=== PATIENT | female | born 1955 | race Two or more races ===

== ENCOUNTER 2016-07-04 17:42 | Inpatient (IN) | payer MEDICARE ==
--- NOTE | ~2016-07-04 | CR72 ---
[facility] A Service of [facility] RADIOLOGY TEXT RESULTS PATIENT: JUSTYN ELLISON LOCATION: [facility] : 53 UNIT #: [id number] AGE: [address]: Chaz Bean MD SEX: F ORDER DR: [id number] [facility] [address] [facility]. [place], [place] [address] [id number] MR#: [id number] Acc #: [id number] NAME: JUSTYN ELLISON. : 1955 SEX: F STUDY DATE/TIME: 07/04/2016 16:15 UNIT: CED ROOM: 21576 STUDY DESCRIPTION: CR Chest Single View Portable Attending Physician: Chaz Bean M.D. Ordering Physician: Ed Doctor [id number] [facility] Primary Care Physician: Kenyatta Madsen MEDICAL IMAGING REPORT This report is preliminary unless electronic signature is present EXAM Chest x-ray single view portable HISTORY Incoherent, chest pain, short of air starting today. FINDINGS A single frontal portable view of the chest, time 17:09 on 07/04/2016 is reviewed. Comparison study is from 05/18/2016. Moderate globular cardiac silhouette enlargement increased from previous. There is a right-sided pacer/defibrillator. Right hilum is enlarged but unchanged. There might be some patchy air space disease at the left base, new from previous or at least better seen. Hilar prominence is not changed significantly from the study of 2010. There is enlargement of the main pulmonary artery segmental on the current study and this is concerning for underlying pulmonary hypertension when findings are taken together. IMPRESSION Cardiac silhouette enlargement globular moderate. Additionally there is enlargement of the main pulmonary artery segment contour and carlos manuel and this raises concern for pulmonary hypertension. There may be a small amount of air space disease at the left base. There is no congestive failure, pleural effusion or pneumothorax seen. There is a right sided pacer/defibrillator. [facility] A Service [facility] RADIOLOGY TEXT RESULTS PATIENT: JUSTYN ELLISON LOCATION: [facility] : 54 UNIT #: [id number] AGE: [address]: Chaz Bean MD SEX: F ORDER DR: Dictated by... Nidia Abebe M.D. THIS IS AN ELECTRONICALLY VERIFIED REPORT Nidia Abebe M.D. at 07/09/2016 1:49 PM Lien TD: 07/05/2016 12:39 JOB #: [id number] MEDICAL IMAGING REPORT Page 1 of 1 COPY
--- NOTE | ~2016-07-04 | HP ---
Unit #: [id number] #: [id number] Patient: JUSTYN ELLISON [id number] [facility]. [place], [place] [address] [id number] I MR#: [id number] NAME: JUSTYN ELLISON. ROOM: 06933 Age: 60 Sex: F Admission Date: 07/04/2016 : 1955 Attending Physician: Antoine Mcallister M.D. Primary Care Physician: Kenyatta Madsen HISTORY AND PHYSICAL REVISED REPORT HISTORY OF PRESENT ILLNESS This is a pleasant 60-year-old female who does speak Bahamian. She has a past medical history of endstage renal disease, on hemodialysis Tuesdays, and Saturdays; history of renal cell carcinoma status post left nephrectomy; paroxysmal atrial fibrillation, on chronic anticoagulation with Coumadin; diabetes mellitus; hypertension; hyperlipidemia; hyperparathyroidism; permanent pacemaker placement. The patient presented to the emergency room yesterday after completing dialysis. Apparently during dialysis she started complaining of some lower anterior sternal chest pain described as sharp. No radiation of pain. She says she did have some shortness of breath and diaphoresis; however, the pain came and went. However, the patient did develop hypotension during dialysis and was, therefore, sent to the emergency room for further evaluation. On arrival to the emergency room the patient was found to be in atrial fibrillation with RVR, rate of 107 beats per minute. EKG showed nonspecific T wave abnormality. No acute ischemic change. QTc interval 531 msec. Guply-yb-lvmi troponins have been less than 0.05 x2. It was noted the patient's creatinine is 5. Potassium this morning is 5.5. Will ask renal to see the patient. She also was found to have an elevated PT, INR of 66.9 and 6.0. There is no overt bleeding. Will hold all Coumadin for now. The patient has had evaluation for coronary artery disease in the past. Had a cardiac catheterization in 2013, which showed normal coronaries and a normal LV function. She also had repeat Lexiscan in 2015, which showed no stress-induced ischemia, LVEF of 71%. At present the patient is resting in bed. She still does complain of slight discomfort in the lower anterior chest, upper epigastric area, but is in no acute distress. At this time she appears to be in sinus rhythm, and heart rate blood pressures are stable. PAST MEDICAL HISTORY 1. Insulin-dependent diabetes mellitus. 2. Hypertension. 3. Hyperlipidemia. 4. Paroxysmal atrial fibrillation, on chronic anticoagulation with Unit #: [id number] #: [id number] Patient: JUSTYN ELLISON A Coumadin. 5. Endstage renal disease, on hemodialysis Wednesday, , Wednesday. 6. History of renal cell carcinoma status post left nephrectomy. 7. Hyperparathyroidism. 8. Status post permanent pacemaker placement. SURGICAL HISTORY 1. Left nephrectomy for renal cell carcinoma. 2. Permanent pacemaker placement. SOCIAL HISTORY She lives alone. Her daughter is close by. She denies any illicit drugs, alcohol or tobacco use. FAMILY HISTORY Heart disease in her mother. PHYSICAL EXAM GENERAL: This is a pleasant middle-aged female in no acute distress. VITAL SIGNS: Temperature 97.8, respiratory rate 18-20, pulse 73, blood pressure 105/79. HEENT: Head is atraumatic, normocephalic. Mucous membranes are dry. NECK: Trachea is midline. Supple. No thyromegaly. No JVD. Normal upstroke without bruits. CARDIAC: S1, S2. No murmur, gallop or rub. PULMONARY: Anterior chest wall is clear to auscultation. She has fine bibasilar rales. ABDOMEN: Obese, soft, nontender, nondistended. Bowel sounds are present. EXTREMITIES: Pulses are palpable. Trace edema. No clubbing or cyanosis. NEUROLOGIC: She is awake, alert and oriented. She moves all extremities equally and follows commands with ease. DIAGNOSTIC STUDIES LABORATORY: Sodium 136, potassium 5.5, chloride 97, CO2 27, BUN 25, creatinine 5, glucose 182. PT 66.9, INR 6. Troponins have been less than 0.05 x2 point of care. Hemoglobin 11, hematocrit 35.2, WBC 6.3, platelet count 247. IMAGING: Chest x-ray shows cardiac enlargement. No evidence of congestive heart failure. No pneumothorax. Right-sided pacemaker is present. CARDIOVASCULAR: EKG shows atrial fibrillation with RVR, rate of 107 beats per minute, nonspecific T wave abnormality, prolonged QTc of 531 msec, no acute ischemic change. IMPRESSION 1. Atrial fibrillation with RVR with a history of paroxysmal atrial fibrillation. 2. Endstage renal disease, on hemodialysis Wednesday, , Wednesday. 3. Atypical chest pain. 4. Hyperkalemia. 5. Status post permanent pacemaker placement. 6. LVEF 60 to 65 in 2013. 7. History of hypertension. 8. Hyperlipidemia. 9. Diabetes mellitus. 10. History of hyperparathyroidism. Unit #: [id number] #: [id number] Patient: JUSTYN ELLISON 11. History of renal cell carcinoma status post left nephrectomy. PLAN The patient has been admitted with complaints of atypical chest pain. In the ER she was found to be in atrial fibrillation with RVR. It appears the patient's initial EKG showed some nonspecific T wave abnormality but no acute ischemic change. Her initial troponins have been negative, point of care. The patient did have cardiac cath in 2013, which showed normal coronary arteries, and a Lexiscan in 2015, which showed no stress-induced ischemia. Will trend cardiac enzymes q.6 hours x2 more sets. Please call if troponin is elevated. Will ask Dr. Hidalgo with renal to see the patient, as she is a hemodialysis patient. Will ask HIPS to see for medical management. Her Coumadin will continue to be held at this time secondary to elevated INR. Will check blood cultures q.30 minutes x2 sets to rule out any evidence of infection. Repeat BMP, CBC, PT and INR daily and a magnesium level. Okay at this time for the patient to eat. It appears at this time she has returned to normal sinus rhythm. Will continue her other medicines as ordered. She will be continued on her Metoprolol, amiodarone and aspirin therapy. Anticoagulation can be resumed once INR is at a normal level. Dictated by Liane Franco A.P.R.N. for Antoine Mcallister M.D. LMW/db TD: 07/05/2016 10:18 JOB #: [id number] CC: Mario Alberto/[email or web address] Please Delete HISTORY AND PHYSICAL Page 1 of 1 X Liane Franco APRN HISTORY AND PHYSICAL
--- NOTE | ~2016-07-04 | CO ---
Unit #: [id number] #: [id number] Patient: JUSTYN ELLISON [id number] [address] [place], [place] [address] [id number] I MR#: [id number] NAME: JUSTYN ELLISON. ROOM: 55026 Age: 60 Sex: F Admission Date: 07/04/2016 : 1955 Attending Physician: Chaz Bean M.D. Primary Care Physician: Kenyatta Madsen Consultation Date: 07/05/2016 CONSULTATION REPORT REASON FOR CONSULT End-stage renal disease. Thank you very much for asking me to see this patient in consultation. HISTORY OF PRESENT ILLNESS Again, Ms. Justyn Ellison is a 60-year-old female with history of end-stage renal disease on hemodialysis every Wednesday, , and Wednesday who has a history of left nephrectomy secondary to renal cell CA in February 2013. Had a large bleed and hematoma post that and has intermittently now been on Coumadin again for intermittent atrial fibrillation who was at dialysis yesterday and apparently developed shortness of breath and chest pain. Her dialysis was discontinued and presented here although needle was still in place. She states her epigastric/chest pain is feeling better but not fully resolved. I am not sure at this point in time how much dialysis she got. She was noted to have a potassium of 4.4 upon presentation. It is up to 5.5 this morning. She denies any shortness of breath currently. No nausea or vomiting. PAST MEDICAL HISTORY 1. History of end-stage renal disease, as mentioned above. 2. History of atrial fibrillation in the past. 3. Sick sinus syndrome. 4. History of bradycardia, status post temporary pacer in the past. 5. History of renal cell CA, status post left nephrectomy. 6. History of DVTs. 7. History of diabetes. 8. History of hyperlipidemia. SOCIAL HISTORY Does not smoke. No alcohol. FAMILY HISTORY Noncontributory. REVIEW OF SYSTEMS As mentioned in the HPI. Apparently, no fevers, chills, visual problems, cough, hemoptysis. No neck pain. She does have the chest pain, shortness of breath mentioned above. No severe abdominal pain. No significant lower extremity swelling. No recent seizures or strokes. ALLERGIES No known drug allergies. Unit #: [id number] #: [id number] Patient: JUSTYN ELLISON MEDICATIONS Her medications supposedly at home included: 1. Amiodarone 200 mg daily. 2. Phenergan p.r.n. 3. Hydralazine 50 mg t.i.d. 4. Insulin. 5. Sensipar 30 mg daily. 6. Aspirin 81 mg daily. 7. Hydrocodone p.r.n. for pain. 8. Protonix 40 mg daily. 9. Apparently, she had been on Coumadin daily although I do not know what her previous INR has been at the dialysis unit. 10. Renvela with each meal, two of them. PHYSICAL EXAMINATION GENERAL: She is alert and comfortable. VITAL SIGNS: Her T-max is 97.3, pulse is 72-124. Her blood pressure is 86-121 over 50s to 80s. HEENT: She is normocephalic and atraumatic. Her pupils are equal, round, and reactive to light. Extraocular muscles are intact. Hearing appears to be normal. Mouth is clear. No erythema. No exudate. NECK: Supple. No adenopathy. CARDIAC: She is back in a regular rhythm, although it was atrial fibrillation when she came in. No S3 or S4 were appreciated. LUNGS: Her lungs are clear bilaterally. ABDOMEN: Bowel sounds positive. Nontender, soft. No masses felt. No hepato-organomegaly noted. EXTREMITIES: She has no lower extremity swelling. Fistula in the left arm. Dialysis nurse currently is putting pressure on it after the needle was removed 30 minutes ago. GENITOURINARY: Deferred. DIAGNOSTIC STUDIES LABORATORY: Today her BUN is 25, creatinine 5, glucose 182, potassium 5.5, bicarbonate 27, calcium 8.2. Albumin 3.5, alkaline phosphatase 143. Her troponin is pending. Her INR is 4.8 last night and up to 6 today. Her hemoglobin is 11, white count 6300, platelets 247,000. ASSESSMENT AND PLAN 1. End-stage renal disease: Patient with some dialysis yesterday, unsure how much. Potassium is worsening today. Will plan on dialyzing her again today on a 2 potassium bath three hours, although I will not remove any fluid. She does not appear to be volume overloaded on exam and will check her electrolytes in the morning and will continue to follow. Agree with continuing phosphate binders. 2. History of intermittent atrial fibrillation back on Coumadin apparently in the past, although increased INR again per cardiology/primary. 3. Diabetes mellitus. 4. History of hypertension. 5. History of renal cell cancer, status post left nephrectomy. 6. Anemia: Hemoglobin stable. Will give Epogen with dialysis and will follow trends. Dictated by... Unit #: [id number] #: [id number] Patient: JUSTYN ELLISON M.D. WAD/mary lou TD: 07/06/2016 09:57 JOB #: [id number] CONSULTATION REPORT Page 1 of 1 X Adwoa Hidalgo MD X CONSULTATION REPORT
--- NOTE | ~2016-07-04 | CO ---
Unit #: [id number] #: [id number] Patient: JUSTYN ELLISON [id number] [facility]. [place], [place] [address] [id number] I MR#: [id number] NAME: JUSTYN ELLISON. ROOM: 95893 Age: 60 Sex: F Admission Date: 07/04/2016 : 1955 Attending Physician: Chaz Bean M.D. Primary Care Physician: Kenyatta Madsen Consultation Date: 07/05/2016 CONSULTATION REPORT REASON FOR CONSULTATION Medical management. HISTORY OF PRESENT ILLNESS The patient is a 60-year-old female with a past medical history of atrial fibrillation, chronic anticoagulation, end stage renal disease, diabetes, hypertension, hyperlipidemia, hyperparathyroidism, renal malignancy who was admitted by cardiology for atrial fibrillation with rapid ventricular response. The patient apparently developed chest pain and low blood pressure during dialysis. She states that the pain was in the mid chest. She described it as "sharp." It did not radiate. She did have some associated shortness of breath and diaphoresis. She states that the pain is now gone. However, the shortness of breath has remained. She also reports nonproductive cough. She denies any fever. She was noted to have low blood pressure at dialysis. Per my discussion with ER staff, was given fluids at dialysis and an additional 500 mL of normal saline in the emergency department. Blood pressure most recently is 114/70. In the emergency department, laboratory was notable for hemoglobin of 11, initially blood sugar 226, BUN and creatinine 18 and 4 respectively. Troponin was less than 0.05. INR was 4.8. She, as stated above, was admitted by cardiology. HIPS was consulted for medical management. This morning potassium was noted to be 5.5, glucose 182, BUN and creatinine 25 and 5 respectively. INR is 6. Also per my discussion with cardiothoracic surgery who was also seeing the patient, the patient had an echocardiogram this morning that showed a large pericardial effusion. She is actually being transferred to [facility]. PAST MEDICAL HISTORY 1. Admission to [facility] 07/11/2011 through 07/16/2011 for paroxysmal atrial fibrillation with sick sinus syndrome and bradycardia. She underwent temporary pacemaker placement during that admission. 2. End stage renal disease on dialysis, followed by Dr. Hidalgo. She receives dialysis on Wednesday, , and Wednesday with last dialysis being yesterday. 3. Diabetes. 4. Hypertension. 5. Hyperlipidemia. 6. Hyperparathyroidism. Unit #: [id number] #: [id number] Patient: JUSTYN ELLISON 7. Renal malignancy, status post left nephrectomy. 8. Chronic anticoagulation with Coumadin. 9. Echocardiogram 11/26/2013, showed an ejection fraction of 60% to 65% with moderate asymmetric left ventricular hypertrophy, patent foramen ovale, right ventricular systolic pressure of 40 to 50 mmHg. Of note, the patient had an echocardiogram this morning that shows a large pericardial effusion. The official report is pending. PAST SURGICAL HISTORY 1. Temporary transvenous pacemaker placement (05/14/2016). 2. EGD and colonoscopy. 3. Cardiac catheterization 11/26/2013 showed no hemodynamically significant fixed coronary artery stenosis with normal left ventricular systolic function. 4. Appendectomy. 5. Cholecystectomy. 6. Hysterectomy. 7. Right breast biopsy. 8. Shunt left upper extremity. 9. Left nephrectomy. 10. Fistula placement. SOCIAL HISTORY The patient lives with family. There is no tobacco or alcohol use. FAMILY HISTORY Notable for her mother having diabetes. Her dad had malignancy. ALLERGIES No known allergies. HOME MEDICATIONS Amiodarone 200 mg twice daily; aspirin 81 mg daily; Protonix 40 mg daily; Sensipar 30 mg daily; Humalog 2 units t.i.d.; hydrocodone and acetaminophen q.4 hours p.r.n.; Levemir 20 units at bedtime; Renvela 1600 mg t.i.d. The patient is also on Coumadin, which I do not see listed. REVIEW OF SYSTEMS A complete review of systems is negative except as indicated in the HPI. PHYSICAL EXAMINATION VITAL SIGNS: Temperature 97.3, pulse 73, respirations 18, blood pressure 105/79. GENERAL: The patient is awake and alert in no acute distress. HEENT: Head is atraumatic. Mucous membranes are moist. NECK: Supple. Trachea is midline. CARDIOVASCULAR: Irregular. LUNGS: Demonstrate bibasilar crackles. Breathing is mildly labored with conservation. ABDOMEN: Soft, nontender with bowel sounds present in all four quadrants. EXTREMITIES: Showed trace edema but are nontender. NEUROLOGIC: The patient is awake and alert. She follows commands. PSYCH: Mood and affect are normal. Patient is cooperative. SKIN: Skin of examined areas is warm and dry. DIAGNOSTIC STUDIES CARDIOLOGY STUDIES: EKG shows atrial fibrillation with rapid ventricular response at a rate of 107 BPM. Unit #: [id number] #: [id number] Patient: JUSTYN ELLISON IMAGING STUDIES: Chest x-ray showed cardiac enlargement with no evidence of congestive heart failure. LABORATORY STUDIES: Troponin was less than 0.05. Complete blood count notable for hemoglobin and hematocrit of 11 and 35.2 respectively. INR was 4.8 yesterday, it is 6 today. Basic metabolic panel this morning notable for potassium of 5.5, glucose 182, BUN and creatinine 25 and 5 respectively. Calcium is 8.3. ASSESSMENT The patient is a 60-year-old female with: 1. Atrial fibrillation with rapid ventricular response, currently rate controlled with a pulse of 71. 2. Chest pain. The patient's cardiac enzymes have been negative. 3. Pericardial effusion. The patient recently had a temporary pacemaker placed. She reportedly has early signs of tamponade on echocardiogram. The plan is for her to be transferred to [facility] for pericardial window. 4. Hyperkalemia. The patient's potassium is 5.5. 5. End stage renal disease on dialysis Wednesday, , and Wednesday. 6. Diabetes. 7. Hypertension. 8. Hyperlipidemia. 9. Hyperparathyroidism. 10. History of renal malignancy, status post nephrectomy. 11. Chronic anticoagulation with an INR of 6 this morning. PLAN 1. Regarding diabetes, I have ordered a hemoglobin A1c, as well as low dose sliding scale insulin with Accu-Cheks. 2. Regarding hyperkalemia, I have ordered Kayexalate. 3. Regarding end stage renal disease on dialysis, Dr. Hidalgo has been consulted. 4. Regarding chronic anticoagulation, the patient is currently supratherapeutic and I have ordered for Coumadin to be held. 5. Regarding pericardial effusion, the patient is being transferred to [facility]. Thank you very much for the consultation. We will follow the patient along closely with you while the patient is here at [facility]. Dictated by... Kenyatta Alfred M.D. Greg TD: 07/05/2016 13:41 JOB #: [id number] Unit #: [id number] #: [id number] Patient: TERRAJUSTYN Boswell CONSULTATION REPORT Page 1 of 1 X Kenyatta Alfred MD CONSULTATION REPORT
--- NOTE | ~2016-07-04 | DS ---
Unit #: [id number] #: [id number] Patient: JUSTYN ELLISON [id number] [address] [address] [id number] MR#: [id number] NAME: JUSTYN ELLISON. ROOM: [id number] Age: 60 Sex: F Admission Date: 07/04/2016 : 1955 Discharge Date: Attending Physician: Chaz Bean M.D. Primary Care Physician: Kenyatta Madsen DISCHARGE SUMMARY DISCHARGE DIAGNOSES 1. Large pericardial effusion with pre-tamponade. 2. Atrial fibrillation with rapid ventricular rate, now sinus rhythm. 3. Supratherapeutic International Normalized Ratio of 6. 4. Endstage renal disease, on hemodialysis Tuesdays, and Saturdays. 5. Atypical chest pain. 6. History of renal cell carcinoma status post left nephrectomy. 7. History of paroxysmal atrial fibrillation, on chronic anticoagulation with Coumadin, which is currently on hold. 8. Insulin-dependent diabetes mellitus. 9. Hypertension history. 10. Hyperlipidemia. 11. History of hyperparathyroidism. 12. Recent permanent pacemaker placement secondary to sick sinus syndrome, [employer] device, which was placed on May 18, 2016. DISCHARGE MEDICATIONS 1. Amiodarone 200 mg p.o. b.i.d. 2. Lopressor 25 mg p.o. t.i.d. 3. Procrit 10,000 units injection prior to dialysis. 4. Levemir 20 units subcu q.h.s. 5. NovoLog 2 units subcu t.i.d. with meals. 6. Sliding scale low dose insulin protocol a.c. and h.s. 7. Sensipar 30 mg p.o. daily. 8. Renvela 1,600 mg p.o. t.i.d. with meals. 9. Protonix 40 mg p.o. daily. HOSPITAL COURSE This is a pleasant 60-year-old female who does speak Kiswahili. She presented to the emergency room on 07/04 with complaints of lower anterior chest discomfort, shortness of breath and hypotension. Apparently she had had dialysis and, toward the end of her treatment, became hypotensive and was transferred to the ER for evaluation. Upon arrival to the emergency room the patient was found to be in atrial fibrillation with RVR, as well as to have supratherapeutic INR of 6. She was also noted to have potassium of 5.5, a creatinine of 5. Renal has been consulted to see the patient. During evaluation the patient did undergo two-D echocardiogram today on 07/05, and I was called with the results, which showed a large pericardial effusion with evidence of pre-tamponade. However, the patient is currently Unit #: [id number] #: [id number] Patient: JUSTYN ELLISON stable. Blood pressure is okay, and she has converted to normal sinus rhythm. Dr. Mcallister was notified. We consulted Dr. Greene, and Dr. Perdue has been in to see and evaluate the patient. It has been decided the patient is best served to be transferred to [facility] for possible pericardial window in the a.m. She will be admitted to Dr. Mcallister with Dr. Greene to consult for probable window in the a.m. Dr. Perdue has seen the patient here at [facility], has ordered CT without contrast, as well as vitamin K and 2 units of FFP to reverse her coagulopathy. Repeat studies will be performed prior to procedure. At present, the patient is stable. It has been explained to her the need for transfer. The access center has been notified, and we are currently awaiting bed placement. All anticoagulation has been stopped at this time. Her Coumadin and her aspirin are both on hold. Her Cardizem drip has been discontinued, as she has converted to normal sinus rhythm. The patient will be transferred to [facility] as soon as a bed becomes available. CONSULTANTS 1. Dr. Hidalgo, renal. 2. Dr. Alfred, HIPS. 3. Dr. Perdue. DIAGNOSTIC STUDIES LABORATORY: Glucose 182, BUN 25, creatinine 5, sodium 136, potassium 5.5, chloride 97, CO2 27. Troponin less than 0.05 x2; currently has one pending. TSH is 5.35. PT 66.9, INR 6. Hemoglobin 11, hematocrit 35.2, WBC 6.3, platelet count 247. IMAGING: Chest x-ray shows cardiac enlargement, no evidence of congestive heart failure, pneumothorax. Right-sided pacemaker is present. CARDIOVASCULAR: EKG initially showed atrial fibrillation with a rate of 107 beats per minute with RVR, nonspecific T wave abnormality, prolonged QTc of 531 msec, no acute ischemic change. PHYSICAL EXAMINATION VITAL SIGNS: Temperature 97.8, respiratory rate 18-20, pulse 70s and sinus, blood pressure 105/79. HEENT: Head is atraumatic, normocephalic. Mucous membranes are dry. NECK: Trachea is midline. Supple. No thyromegaly. No JVD. Normal carotid upstrokes without bruits. CARDIOVASCULAR: S1, S2. No murmur, gallop or rub. PULMONARY: Anterior chest wall is clear. Fine rales bibasilar. ABDOMEN: Obese, soft, nontender, nondistended. Bowel sounds are present. EXTREMITIES: Pulses are palpable. Trace edema. No clubbing or cyanosis. NEUROLOGIC: She is awake, alert and oriented. Moves all extremities equally. Follows commands with ease. DISCHARGE INSTRUCTIONS The patient initially was admitted secondary to atypical chest pain, shortness of breath and hypotension at dialysis. In the emergency room she was found to be in atrial fibrillation with RVR and was started on a Cardizem drip. She has since converted to normal sinus rhythm. Cardiac enzymes were noted to be negative. During her workup with two-D echocardiogram, (1) called me to notify of a large pericardial effusion with evidence of possible pre-tamponade. The patient is stable. Unit #: [id number] #: [id number] Patient: JUSTYN ELLISON Her blood pressure is stable. Her heart rate is stable. We have asked Dr. Perdue, who is in with Dr. Greene, to see and evaluate the patient. It has been determined that it is best for her to be transferred to [facility] for possible pericardial window in the a.m. per Dr. Greene or Dr. Perdue. This has been explained to the patient, and she is willing and agreeable to proceed. I have notified the access center and currently am awaiting intermediate level bed placement. All anticoagulation has been discontinued at this time. Her Cardizem drip has also been discontinued, as the patient is in normal sinus rhythm. Dr. Perdue has seen and evaluated the patient and has ordered some vitamin K to be given, as well as 2 units FFP. She will also undergo CTA of the chest without contrast to rule out any perforation from her recent pacemaker placement in May of 2016. [facility], Dr. Mcallister's service, and Dr. Greene to consult, again for possible pericardial window in the a.m. Dictated by... Liane Franco A.P.R.N. for John Hodge/sherman TD: 07/05/2016 13:15 JOB #: [id number] DISCHARGE SUMMARY Page 1 of 1 X Liane Franco APRN X DISCHARGE SUMMARY
--- NOTE | ~2016-07-04 | CT57 ---
[facility] A Service [facility] RADIOLOGY TEXT RESULTS PATIENT: JUSTYN ELLISON LOCATION: [facility] [id number] : 54 UNIT #: [id number] AGE: [address]: Chaz Bean MD SEX: F ORDER DR: [id number] [facility] [address] [place], [place] [address] [id number] MR#: [id number] #: [id number] NAME: JUSTYN ELLISON. : 1955 SEX: F STUDY DATE/TIME: 07/05/2016 15:32 UNIT: CED ROOM: [id number] STUDY DESCRIPTION: CT Chest Wo Cont Attending Physician: Chaz Bean M.D. Ordering Physician: Ana Hidalgo M.D. Primary Care Physician: Kenyatta Madsen MEDICAL IMAGING REPORT This report is preliminary unless electronic signature is present EXAM CT chest without contrast HISTORY Chest pain and shortness of air for 2 days. Hypertension. TECHNIQUE This CT exam was performed with one or more of the following radiation dose reduction techniques: automatic exposure control, adjustment of mA and/or kV according to patient size, and iterative reconstruction. FINDINGS CT chest without contrast demonstrates large pericardial effusion measuring up to nearly 4 cm in thickness along the left posterior cardiac margin. There are small bilateral pleural effusions. There is mild atelectasis in the posterior and inferior lower lobes bilaterally. There is also mild atelectasis in the inferior lingula. Subsegmental atelectasis or scarring in the medial upper lobes bilaterally. No focal pulmonary consolidation. Normal caliber thoracic aorta. Partly calcified mitral annulus. IMPRESSION 1. Large pericardial effusion measures close to 4 cm in thickness along the left posterior cardiac margin. 2. There are small bilateral pleural effusions and there is [id number] atelectasis in the posterior and inferior lower lobes. 3. There is also mild atelectasis or scarring in the medial upper lobes bilaterally and mild linear atelectasis or scarring in the right middle lobe and lingula. [facility] A [facility] RADIOLOGY TEXT RESULTS PATIENT: JUSTYN ELLISON LOCATION: [facility] [id number] : 54 UNIT #: [id number] AGE: [address]: Chaz Bean MD SEX: F ORDER DR: Dictated by... Bhargav Jean M.D. THIS IS AN ELECTRONICALLY VERIFIED REPORT Bhargav Jean M.D. at 07/05/2016 10:54 PM KHARI/ana TD: 07/05/2016 20:59 JOB #: [id number] MEDICAL IMAGING REPORT Page 1 of 1 COPY
--- NOTE | ~2016-07-04 | EKG ---
PATIENT: JUSTYN ELLISON UNIT #: [id number] Ventricular Rate: 107 BPM Atrial Rate: 71 BPM QRS Duration: 84 ms Q-T Interval: 398 ms QTC Calculation(Bezet): 531 ms Calculated R [place]: 65 degrees Calculated T [place]: 105 degrees Diagnosis Line: Atrial fibrillation with rapid ventricular Diagnosis Line: response Diagnosis Line: Nonspecific T wave abnormality Diagnosis Line: Prolonged QT Diagnosis Line: Abnormal ECG Diagnosis Line: When compared with ECG of 15-MAY-2016 11:24, Diagnosis Line: Atrial fibrillation has replaced Sinus rhythm Diagnosis Line: Nonspecific T wave abnormality now evident in Diagnosis Line: Lateral leads Diagnosis Line: Confirmed by NICKI BARON MD ([id number]) on 07/07/2016 Diagnosis Line: 10:52:20 PM INTERPRETING MD: TOD MIKE
--- NOTE | ~2016-07-04 | EKG ---
PATIENT: JUSTYN ELLISON UNIT #: [id number] Ventricular Rate: 69 BPM Atrial Rate: 69 BPM P-R Interval: 164 ms QRS Duration: 86 ms Q-T Interval: 484 ms QTC Calculation(Bezet): 518 ms P [place]: 52 degrees Calculated R [place]: 71 degrees Calculated T [place]: 27 degrees Diagnosis Line: Normal sinus rhythm Diagnosis Line: Prolonged QT Diagnosis Line: Abnormal ECG Diagnosis Line: Diagnosis Line: Confirmed by NICKI BARON MD ([id number]) on 07/07/2016 Diagnosis Line: 10:57:09 PM INTERPRETING MD: TOD MIKE
[~2016-07-04 17:42] MED LIST: ACETAMINOPHEN PO; ALBUTEROL17 GM INH; AMIODARONE PO; ANUSOL-HC25 MG/SUPP RC; APRESOLINE PO; ASPIRIN PO; ASPIRIN1 GM PO; ASPIRIN300 MG PO; ASPIRIN81 M1 PO; ASPIRIN81 M2 PO; ASPIRIN81 MG PO; AUGMENTIN PO; Aspirin PO; BAYER ASPIRIN325 M1 PO; BD INSULIN MC; BENTYL10 M1 PO; BENZONATATE PO; BETAPACE80 MG PO; CALCIUM ACETAT667 M1 PO; CALCIUM1 TAB.CHEW PO; CAPTOPRIL PO; CARDIZEM; CARDIZEM CD180 M1 PO; CARDIZEM PO; CARDIZEM60 MG PO; CELEXA PO; CHOLESTEROL; CORDARONE200 M1 PO; COREG PO; COUMADIN2.5 MG PO; COUMADIN5 MG PO; COUMADIN7.5 MG PO; Calcium PO; Cardizem PO; DESYREL100 MG PO; DEXILANT30 MG PO; ECOTRIN81 M1 PO; FLAGYL PO; FLEXERIL10 M1 PO; FLEXERIL10 MG PO; FOLIC ACID PO; FUROSEMIDE40 MG PO; HCTZ PO; HUMALOG MI100 UNIT/4 SUBQ; HUMALOG100 U/M1; HUMALOG100 U/M1 SQ; HUMALOG100 U/M2 SUBQ; HUMALOG100 U/ML SUBQ; HUMIRA20 MG/0.4 SQ; HYDRALAZINE HC100 MG PO; HYDRALAZINE HCL25 MG; HYDRALAZINE HCL25 MG PO; HYDRALAZINE HCL50 MG PO; HYDROCHLOROTHIA25 MG PO; HYDROCODON-ACE1 EAC7 PO; K-DUR10 MEQ PO; LANTUS100 U/ML; LANTUS100 U/ML SUBQ; LANTUS100 UNITS/; LASIX PO; LASIX20 MG PO; LASIX80 MG PO; LEVAQUIN PO; LEVAQUIN750 MG PO; LEVEMIR; LEVEMIR FL100 UNIT/1 SQ; LEVEMIR SUBQ; LEVEMIR100 U/ML SQ; LEVEMIR100 U/ML SUBQ; LEVEMIR100 UNITS/; LEVEMIR100 UNITS/ SUBQ; LEVOXYL125 MC1 PO; LINZESS145 MCG PO; LIPITOR40 MG PO; LISINOPRIL PO; LISINOPRIL1 GM; LISINOPRIL1 GM PO; LISINOPRIL2.5 MG PO; LISINOPRIL20 MG PO; LOPRESSOR PO; LOVENOX80 MG/0.8 SUBQ; METFORMIN PO; METOPROLOL PO; METOPROLOL SUC100 MG PO; METOPROLOL SUCC25 MG PO; METOPROLOL TAR100 MG PO; METOPROLOL TAR25 MG PO; MEVACOR PO; MIRALAX17 GM PO; MIRALAX255 GM PO; MOTION RELIEF25 MG PO; NAPROSYN500 MG PO; NASCOBAL1 EACH NS; NORVASC PO; NORVASC10 MG PO; NORVASC2.5 MG PO; NOVOLOG100 UNITS/ INJ; OCEAN45 ML; PERCOCET PO; PHENERGAN12.5 MG PO; PHOSLO667 M1 PO; PHOSLO667 MG; PRILOSEC PO; PRINIVIL40 MG PO; PROTONIX PO; RENAGEL800 MG PO; RENVELA2.4 GM PO; RENVELA800 MG PO; SENSIPAR30 M1 PO; SIMVASTATIN20 MG PO; SODIUM BICARBO650 MG PO; SOTALOL120 MG PO; SYNTHROID PO; SYNTHROID125 PO; Sotalol PO; TOPROL XL 50 MG50 MG PO; TOPROL XL PO; TUMS500 MG PO; TYLENOL #3 PO; TYLENOL325 M1 PO; ULTRAM PO; VICODIN 5/500 T1 TAB; VITAMIN D350000 UNIT PO; VITAMIN D5000 UNIT PO; ZESTRIL40 MG PO; ZOCOR PO; ZOCOR20 MG PO; [UNRECOGNIZED DRUG - OTHER] MC
[2016-07-04 17:49] LABS: POC - CKMB <1.0 ng/mL (0.0-7.9); POC - TROPONIN <0.05 ng/mL (<=0.05)
[2016-07-04 18:04] LABS: BASOPHIL# 0.1 X10e3 (0-0.3); BASOPHIL% 0.8 % (0-2.5); EOSINOPHIL% 0.8 % (0.0-7.0); HEMATOCRIT 35.2 % (35.0-45.0); LYMPHOCYTE# 1.1 X10e3 (1.0-3.5); MEAN CELL VOLUME 99.5 FL (83-96); MEAN CORPUSCULAR HEMOGLOBIN 31.1 PG (28-34); MEAN CORPUSCULAR HGB CONC 31.3 g/dL (30-36); MEAN PLATELET VOLUME 8.7 FL (6.5-11.5); MONOCYTE# 0.4 X10e3 (0-1.0); MONOCYTE% 6.6 % (3.0-12.0); NEUTROPHIL# 4.7 X10e3 (1.5-7.1); NEUTROPHIL% 74.8 % (40-75); PLATELET COUNT 247 X10e3 (140-420); RED BLOOD COUNT 3.54 X10e (3.90-5.30); RED CELL DISTRIBUTION WIDTH 17.4 % (11.0-15.5); WHITE BLOOD COUNT 6.3 X10e3 (4.0-10.5)
[2016-07-04 18:05] LABS: DIFF IND NO
[2016-07-04 18:24] LABS: PARTIAL THROMBOPLASTIN TIME 44.3 SECONDS (23.5-31.3)
[2016-07-04 18:26] LABS: PROTHROMBIN TIME (PATIENT) 53.3 SECONDS (9.6-11.5)
[2016-07-04 18:32] LABS: INR 4.8
[2016-07-04 18:36] LABS: ALBUMIN SERUM 3.5 g/dL (3.5-5.0); BILIRUBIN, DIRECT 0.1 mg/dL (0.0-0.2); BILIRUBIN,INDIRECT 0.5 mg/dL (0.0-0.9); BILIRUBIN,TOTAL 0.6 mg/dL (0.2-2.0); BUN/CREATININE RATIO 4.5; GLOM FILT RATE Estimated 11.4 mL/min (>60); POTASSIUM 4.4 mmol/L (3.5-5.1); PROTEIN TOTAL SERUM 7.2 g/dL (6.0-8.3)
[2016-07-04] MEDS ORDERED: RENVELA800 MG PO (19:28)
[2016-07-04 19:29] LABS: POC - CKMB <1.0 ng/mL (0.0-7.9); POC - TROPONIN <0.05 ng/mL (<=0.05)
[2016-07-05 05:24] LABS: PROTHROMBIN TIME (PATIENT) 66.9 SECONDS (9.6-11.5)
[2016-07-05 05:53] LABS: CALCIUM SERUM 8.3 mg/dL (8.4-10.2); GLOM FILT RATE Estimated 8.7 mL/min (>60)
[2016-07-05 06:06] LABS: POTASSIUM 5.5 mmol/L (3.5-5.1)
[2016-07-05] MEDS ORDERED: COUMADIN (08:30)
== END 2016-07-05 18:59 | DRG 314 ==
LOC: CED 17:42 → SEDOF 19:15 → CEDOF 22:06
PROVIDERS: Emergency Medicine; Nurse Practitioner
PROC: B246YZZ Ultrasonography of Right and Left Heart using Other Contrast (ICD-10-PCS; principal; 2016-07-05)
DX: I31.3 Pericardial effusion (noninflammatory) (principal); N18.6 End stage renal disease; I12.0 Hypertensive chronic kidney disease with stage 5 chronic kidney disease or end stage renal disease; E11.22 Type 2 diabetes mellitus with diabetic chronic kidney disease; I48.91 Unspecified atrial fibrillation; Z99.2 Dependence on renal dialysis; Z79.4 Long term (current) use of insulin; E78.5 Hyperlipidemia, unspecified; E21.3 Hyperparathyroidism, unspecified; Z85.528 Personal history of other malignant neoplasm of kidney; Z90.5 Acquired absence of kidney; Z79.84 Long term (current) use of oral hypoglycemic drugs; Z79.82 Long term (current) use of aspirin; Z90.49 Acquired absence of other specified parts of digestive tract; Z90.710 Acquired absence of both cervix and uterus; E87.5 Hyperkalemia; Z86.718 Personal history of other venous thrombosis and embolism; R07.9 Chest pain, unspecified
CPT/HCPCS: 71010; 71250; 80048; 80076; 82550; 82553; 82947; 84443; 84484; 85025; 85610; 85730; 86850; 86900; 86901; 87040; 93005; 93306; 96374; 96375; 99291; J1885; J3430; P9059; Q4081

== ENCOUNTER 2016-07-14 08:49 | Inpatient (IN) | payer MEDICARE ==
--- NOTE | ~2016-07-14 | CT4 ---
[facility] A Service [facility] RADIOLOGY TEXT RESULTS PATIENT: JUSTYN ELLISON LOCATION: [facility] 579-01 : 53 UNIT #: [id number] AGE: [address]: Irene Muse MD SEX: F ORDER DR: [id number] [facility] [address] [place], [place] [address] [id number] E MR#: [id number] Acc #: [id number] NAME: JUSTYN LELISON. : 1955 SEX: F STUDY DATE/TIME: 07/14/2016 9:41 UNIT: LINDA ROOM: STUDY DESCRIPTION: CT Abd and Pelv Wo Cont Attending Physician: Jim Jennings M.D. Ordering Physician: Jim Jennings M.D. Primary Care Physician: Kenyatta Madsen MEDICAL IMAGING REPORT This report is preliminary unless electronic signature is present EXAM CT abdomen and pelvis without contrast Date: 07/14/2016 HISTORY 60-year-old female with complaints of abdominal pain for 1 day, greatest in the left upper abdomen, with nausea and vomiting. Previous appendectomy, cholecystectomy, hysterectomy. COMPARISON CT abdomen and pelvis without contrast 07/11/2015. PROCEDURE 3 mm noncontrast axial images through the abdomen and pelvis. Enteric contrast was not administered. Sagittal and coronal reformed images were obtained. This CT exam was performed with one or more of the following radiation dose reduction techniques: automatic exposure control, adjustment of mA and/or kV according to patient size, and iterative reconstruction. FINDINGS Abdomen: There is abnormal thickening and inflammatory type stranding surrounding the mid sigmoid colon where diverticular changes are present. Findings are consistent with acute diverticulitis. The findings are new in comparison to the 07/11/2015 examination. No free air, free fluid or abscess is identified. The gallbladder and appendix are surgically absent, according to the supplied history. Since previous examination, small bilateral pleural effusions have [facility] A [facility] RADIOLOGY TEXT RESULTS PATIENT: JUSTYN ELLISON LOCATION: [facility] 579-01 : 53 UNIT #: [id number] AGE: [address]: Irene Muse MD SEX: F ORDER DR: developed, the right layering to a depth of 3 cm, the left layering to a depth of 2.2 cm. Dense left greater than right bibasilar consolidations or atelectasis are new, as well. There is some atelectasis or infiltrate within the lingula. Minimal atelectasis in the right middle lobe. There is mild cardiac enlargement. Pacemaker leads are in place. Small concentric pericardial effusion has developed, measuring up to 7 mm thickness anteriorly. The liver, spleen, adrenals have a normal noncontrast appearance. Left nephrectomy. [place] right renal atrophy. Pancreas within normal limits. Pelvis: Urinary bladder decompressed. Hysterectomy. Rectum within normal limits. No acute osseous abnormalities are identified. IMPRESSION 1. Findings consistent with acute sigmoid diverticulitis, new since the 07/11/2015 examination. No gross perforation or evidence of abscess. 2. Interval development of bibasilar consolidations, left greater than right. Correlate clinically for pneumonia or aspiration. Atelectatic type changes are thought to be present in the lingular right middle lobe, as well. 3. Development of small bilateral pleural effusions, right greater left, since 07/11/2015. 4. Mild cardiomegaly with coronary artery calcifications. Correlate cardiac history. 5. Interval development of small concentric pericardial effusion up to 7 mm. Correlate for pericarditis type symptoms. 6. Left nephrectomy. Right renal atrophy. Cholecystectomy. Hysterectomy. Dictated by... Mary Cardoza M.D. THIS IS AN ELECTRONICALLY VERIFIED REPORT Mary Cardoza M.D. at 07/15/2016 8:34 AM MELINA/tom TD: 07/14/2016 12:38 JOB #: [id number] MEDICAL IMAGING REPORT Page 1 of 1 COPY
--- NOTE | ~2016-07-14 | HP ---
Unit #: [id number] #: [id number] Patient: JUSTYN ELLISON [id number] [facility]. [place], [place] [address] [id number] E MR#: [id number] NAME: JUSTYN ELLISON ROOM: Age: 60 Sex: F Admission Date: 07/14/2016 : 1955 Attending Physician: Jim Jennings M.D. Primary Care Physician: Kenyatta Madsen HISTORY AND PHYSICAL REVISED REPORT CHIEF COMPLAINT Abdominal pain. HISTORY OF PRESENT ILLNESS The patient is a 60-year-old female with past medical history of end-stage renal disease on dialysis, paroxysmal atrial fibrillation, diabetes, hypertension, hyperlipidemia, hyperparathyroidism, renal malignancy, who presented to the emergency department for evaluation of the above. History is obtained via receptionist clerk #[id number] due to the patient being Maltese speaking. The patient was hospitalized at [facility], July 04, 2016, for atrial fibrillation with rapid ventricular response. She was noted to have a large pericardial effusion and was transferred to [facility]. She apparently had a drain for a few days and repeat echocardiogram showed no effusion. She was discharged home on July 11, 2016. The patient states that she has had a two to three day history of left-sided abdominal pain. She describes the pain as "sharp." She states is fairly constant in nature but varies in intensity. It is exacerbated by moving. There are no alleviating factors. She denies any fever. She states that she has had five bouts of nonbloody emesis within the past 24 hours. Her last bowel movement was several days ago. She told the emergency department physician four days. For me, she said about six days. In the emergency department, CT of the abdomen and pelvis was done and showed findings concerning for acute sigmoid diverticulitis. Additionally, there is bibasilar consolidation with small bilateral pleural effusions as well as a pericardial effusion. She was given Rocephin as well as Flagyl in the emergency department. She is being admitted to [facility] for evaluation and further treatment. PAST MEDICAL HISTORY 1. Admission to [facility], July 04, 2016, for atrial fibrillation with rapid ventricular response. She was found to have large pericardial effusion with early tamponade and was transferred to [facility] where she underwent pericardiocentesis with pericardial drain. 2. Paroxysmal atrial fibrillation with sick sinus syndrome and bradycardia status post temporary pacemaker placement. 3. End-stage renal disease on dialysis followed by Dr. Hidalgo. The Unit #: [id number] #: [id number] Patient: JUSTYN ELLISON patient receives dialysis on Wednesday, , Wednesday with the last dialysis being on July 11, 2016. 4. Diabetes. 5. Hypertension. 6. Hyperlipidemia. 7. Hyperparathyroidism. 8. Renal malignancy status post left nephrectomy. 9. Hypothyroidism. PAST SURGICAL HISTORY 1. Temporary transvenous pacemaker placement, May 14, 2016. 2. EGD and colonoscopy. 3. Cardiac catheterization, November 26, 2013. It showed no hemodynamically significant fixed coronary artery stenosis with a normal left ventricular systolic function. 4. Appendectomy. 5. Cholecystectomy. 6. Hysterectomy. 7. Right breast biopsy. 8. Shunt left upper extremity. 9. Left nephrectomy. 10. Fistula placement. SOCIAL HISTORY The patient lives with family. There is no tobacco or alcohol use. FAMILY HISTORY Notable for her mother having diabetes. Her dad had malignancy. ALLERGIES No known allergies. HOME MEDICATIONS Per the discharge summary from [facility] include: 1. Amiodarone 200 mg daily. 2. Aspirin 81 mg daily. 3. Calcium 667 mg t.i.d. with meals. 4. Humalog 2 units t.i.d. before meals. 5. Levemir 20 units at bedtime. 6. Metoprolol 25 mg t.i.d. 7. [place] 5/325 mg q.4 hours p.r.n. 8. Protonix 40 mg daily. 9. Renvela 800 mg t.i.d. 10. Sensipar 30 mg daily. 11. Synthroid 50 mcg daily. REVIEW OF SYSTEMS A complete review of systems is negative except as indicated in the HPI. The patient denies any chest pain. No shortness of breath. No cough or fever. PHYSICAL EXAMINATION GENERAL APPEARANCE: The patient is a female who is awake and alert, in mild distress. VITAL SIGNS: Temperature 98. Pulse 76. Respiration 20. Blood pressure 146/67. Oxygen saturation 100% on room air. HEENT: The head is atraumatic. Mucous membranes are dry. NECK: Supple. Trachea is midline. Unit #: [id number] #: [id number] Patient: JUSTYN ELLISON CARDIOVASCULAR: Irregular. LUNGS: Decreased breath sounds at the bases. Breathing is not labored with conversation. ABDOMEN: Soft. She is tender to palpation in the left upper and lower quadrants. Bowel sounds are present in all four quadrants. EXTREMITIES: Nontender with no pedal edema. NEUROLOGIC: The patient is awake and alert. She follows commands. PSYCHIATRIC: Mood and affect are normal. The patient is cooperative. SKIN: Of examined areas is warm and dry. DIAGNOSTIC STUDIES LABAORATORY: Comprehensive metabolic panel notable for sodium of 134, chloride 94, glucose 121, BUN and creatinine 41 and 8 respectively, ALT 43, alkaline phosphatase 143, albumin 3.3. Amylase and lipase are normal. INR 1.3. Complete blood count notable for hemoglobin and hematocrit of 11.8 and 37.4 respectively. Blood culture, from November 04, 2016, showed no growth after five days. IMAGING: Chest x-ray shows persistent dense left lower lobe airspace disease, mild right basilar atelectasis or infiltrate, small bilateral pleural effusion, stable cardiomegaly. CT of the abdomen and pelvis shows acute sigmoid diverticulitis, bibasilar consolidation, small bilateral pleural effusions as well as pericardial effusion. ASSESSMENT The patient is a 60-year-old female with: 1. Acute diverticulitis. The patient received Flagyl and Rocephin in the emergency department. 2. Healthcare-associated pneumonia. 3. Bilateral pleural effusions. 4. Pericardial effusion. Per the discharge summary from [facility], on July 11, 2016, the patient had a repeat echocardiogram that showed no effusion at that time. 5. End-stage renal disease on dialysis with last dialysis being on July 11. She is followed by Dr. Hidalgo. 6. Paroxysmal atrial fibrillation intermittently on chronic anticoagulation. The patient does not appear to currently be on anticoagulation. 7. Diabetes. 8. Hypertension. 9. Hyperlipidemia. 10. Hyperparathyroidism. 11. Renal malignancy status post nephrectomy. 12. Hypothyroidism. PLAN 1. Admit to intermediate level. 2. NPO and we will advance diet to clear liquids as tolerated. 3. Blood cultures x2. 4. Stool studies including ova and parasites, C. diff., culture and sensitivity. 5. Supplemental oxygen. 6. Sputum culture and sensitivity. 7. Procalcitonin level. 8. Streptococcal and legionella urine antigens. 9. Vancomycin IV, Levaquin IV, Zosyn IV for acute diverticulitis as well as to cover for healthcare-associated pneumonia pending further workup. Unit #: [id number] #: [id number] Patient: JUSTYN ELLISON 10. PRN DuoNeb. 11. Consult Dr. Patricio regarding healthcare-associated pneumonia and bilateral pleural effusions. 12. Consult Dr. Bean regarding pericardial effusion. 13. Consult Dr. Hidalgo regarding end-stage renal disease and dialysis needs. 14. Hemoglobin A1C. 15. Low dose sliding scale insulin with Accu-Cheks. 16. EKG and cardiac enzymes. 17. Check urinalysis. 18. TSH. 19. Repeat labs in the morning. 20. SCDs for DVT prophylaxis. 21. Additional workup and consultants based on above. 1. Dictated by John Araujo/susy TD: 07/14/2016 12:45 JOB #: [id number] HISTORY AND PHYSICAL Page 1 of 1 X Kenyatta Alfred MD X HISTORY AND PHYSICAL
--- NOTE | ~2016-07-14 | DS ---
Unit #: [id number] #: [id number] Patient: JUSTYN ELLISON [id number] [address] [address] [id number] I MR#: [id number] NAME: JUSTYN ELLISON. ROOM: 579 Age: 60 Sex: F Admission Date: 07/14/2016 : 1955 Discharge Date: Attending Physician: Irene Muse M.D. Primary Care Physician: Kenyatta Madsen DISCHARGE SUMMARY DISCHARGE DIAGNOSES 1. Acute diverticulitis. 2. Healthcare-associated pneumonia, possible gram-negative rods. 3. Bilateral pleural effusion, exudative, status post thoracentesis. 4. Pericardial effusion, recurrent. 5. Renal disease on hemodialysis. 6. Paroxysmal atrial fibrillation, currently Coumadin on hold secondary to recent pericardiocentesis. 7. Diabetes, controlled. 8. Hypertension, controlled. 9. Hyperlipidemia. 10. Hyperparathyroidism. 11. Renal malignancy status post nephrectomy. 12. Hypothyroidism. CONSULTATION Dr. Patricio and Dr. Blanca. PROCEDURES None. LAB DATA Glucose 184. Pleural effusion tap shows a few atypical cells in the background of mesothelial cells, scattered mixed inflammatory cells and blood cells present. Sodium 135, potassium 4.4, creatinine 3.8, AST 15, ALT 19, albumin 2.8. CAT scan of the abdomen and pelvis shows findings consistent with acute sigmoid diverticulitis, bibasilar consolidation present. WBC 4.6, hemoglobin 11.2, platelets 286. Urine culture negative. Blood cultures negative. ALLERGIES None. DISCHARGE MEDICATION 1. Amiodarone 200 mg p.o. daily. 2. Lopressor 25 mg p.o. three times daily. 3. Levemir 10 units subcu at bedtime. 4. Sensipar 30 mg p.o. daily. 5. Aspirin 81 mg daily. 6. Lortab 5 mg q.4 p.r.n. pain. 7. Renvela 800 mg three times daily. 8. Calcium acetate 667 mg p.o. three times daily with meals. Unit #: [id number] #: [id number] Patient: JUSTYN ELLISON 9. Synthroid 50 mcg p.o. daily. 10. Coumadin is on hold. Do not restart until seen by family physician. She is supposed to be off for four weeks total starting 07/05/2016 because of recent pericardiocentesis. 11. Levaquin 500 mg p.o. daily, total eight more days. 12. Flagyl 500 mg three times daily for seven more days. HOSPITALIZATION COURSE A 60-year-old admitted because of shortness of breath and abdominal pain. Acute diverticulitis: Started on IV Levaquin and Zosyn. CAT scan shows acute sigmoid diverticulitis. The patient will be discharged on Levaquin and Flagyl. She is tolerating diet okay. Pericardial effusion: The patient was recently in [facility]. At that time, she had pericardiocentesis and now, currently, she has pericardial effusion recurrent on echocardiogram, mild to moderate. Cardiology saw this patient. They recommend only hemodialysis. No intervention needed at that time. Hold Coumadin for a total of four weeks from pericardiocentesis. Pleural effusion, bilateral: The patient had thoracentesis. Fluid showing exudative. The patient was seen by Dr. Arceo. Continue antibiotics and monitor and follow as an outpatient. End-stage renal disease: The patient received hemodialysis. Obstructive sleep apnea, possible: Follow outpatient. Mild protein malnutrition: Continue with high protein diet. Diabetes mellitus type 2 with lower blood sugars. Levemir has been decreased. Discharge home. Follow with family physician in one week's time. Discharge time taken is 32 minutes. Dictated by... John Ni/susy TD: 07/17/2016 13:56 JOB #: [id number] DISCHARGE SUMMARY Page 1 of 1 X Irene Muse MD X DISCHARGE SUMMARY
--- NOTE | ~2016-07-14 | CO ---
Unit #: [id number] #: [id number] Patient: JUSTYN ELLISON [id number] [address] [address] [id number] I MR#: [id number] NAME: JUSTYN ELLISON. ROOM: 579 Age: 60 Sex: F Admission Date: 07/14/2016 : 1955 Attending Physician: Kenyatta Alfred M.D. Consultation Date: 07/14/2016 CONSULTATION REPORT REASON FOR CONSULTATION Pneumonia. CHIEF COMPLAINT Abdominal pain. HISTORY OF PRESENT ILLNESS A 60-year-old female with a past medical history of end-stage renal disease, paroxysmal atrial fibrillation, diabetes, hypertension, dyslipidemia, and obstructive sleep apnea, presented with the complaint of abdominal pain for the last two to three days, sharp in character, 5 out of 10, radiating all over. She also has been complaining of mild cough. Denies any fever, chills, or rigors. A CT of the abdomen and pelvis showed bilateral pleural effusions and bilateral infiltrates. I am seeing the patient at the bedside. She is currently on room air. REVIEW OF SYSTEMS Positive for pallor. Positive for abdominal pain. No cyanosis, no jaundice. The rest is per History of Present Illness. The rest of a 12-point review of systems has been reviewed and is negative. PAST MEDICAL HISTORY As described above. PAST SURGICAL HISTORY 1. Temporary transvenous pacemaker placement. 2. EGD and colonoscopy. 3. Cardiac catheterization. 4. Appendectomy. 5. Cholecystectomy. 6. Hysterectomy. 7. Right breast biopsy. 8. Shunt in the left upper extremity. 9. Left nephrectomy. 10. Fistula placement. SOCIAL HISTORY He lives with family. Nonsmoker, no alcohol, and no drug abuse. FAMILY HISTORY Diabetes and malignancy. MEDICATIONS 1. Amiodarone. Unit #: [id number] #: [id number] Patient: JUSTYN ELLISON 2. Aspirin. 3. Calcium. 4. Humalog. 5. Levemir. 6. Metoprolol. 7. [place]. 8. Protonix. 9. Renvela. 10. Sensipar. 11. Synthroid. DRUG ALLERGIES No known drug allergies. PHYSICAL EXAMINATION VITAL SIGNS: Temperature 98, pulse 76, respirations 16, blood pressure 146/67, and oxygen saturation 100% on room air. NEUROLOGICAL: Awake, alert, and oriented, with no neurological deficits. HEENT: Pupils equal, round, and reactive to light and accommodation. Extraocular movements are intact. NECK: Supple. No JVD. CHEST: Bilateral air entry, bilateral mild rhonchi. GASTROINTESTINAL: Nontender and soft. Bowel sounds positive. EXTREMITIES: No edema. SKIN: No rashes and no ulcers. LYMPHATICS: No lymphadenopathy. DIAGNOSTIC STUDIES LABORATORY: Reviewed. IMAGING: Reviewed. CT chest, abdomen, and pelvis showed acute sigmoid diverticulitis, bibasilar consolidation, and bilateral pleural effusions. ASSESSMENT 1. Bilateral lower lobe pneumonia, likely healthcare associated. 2. Acute diverticulitis. 3. Pericardial effusion. 4. Diabetes mellitus. 5. Hypertension. 6. Obstructive sleep apnea. PLAN Continue oxygen and bronchodilator as needed. Continue current antibiotic. Follow up cultures. Patient will be closely monitored. May need bronchoscopy. We will follow along. Continue current cardiac regime. Please see orders for detailed plans. I would like to thank you for your kind consideration to involve me in taking care of this patient. Dictated by... John Sandoval/talha TD: 07/14/2016 21:05 JOB #: [id number] Unit #: [id number] #: [id number] Patient: JUSTYN ELLISON CONSULTATION REPORT Page 1 of 1 X Clara Patricio MD CONSULTATION REPORT
--- NOTE | ~2016-07-14 | XA203 ---
[facility] A Service of [facility] RADIOLOGY TEXT RESULTS PATIENT: JUSTYN ELLISON LOCATION: [place] [address] : [birth year] UNIT #: [id number] AGE: [address]: Irene Muse MD SEX: F ORDER DR: [id number] [facility] [address] [facility] [place], [place] [address] [id number] I MR#: [id number] Acc #: [id number] NAME: JUSTYN ELLISON : 1955 SEX: F STUDY DATE/TIME: 07/15/2016 14:40 UNIT: [facility] ROOM: [facility] STUDY DESCRIPTION: XA Thoracentesis Attending Physician: Irene Muse M.D. Ordering Physician: Mary Arceo M.D. Primary Care Physician: Kenyatta Madsen MEDICAL IMAGING REPORT This report is preliminary unless electronic signature is present EXAM Ultrasound guided left thoracentesis 07/15/2016 HISTORY Left pleural effusion. PROCEDURE Informed consent was obtained. The skin site was selected with ultrasound guidance and marked, sterilely prepped and draped and locally anesthetized. The GenVault needle catheter was used for thoracentesis. 200 mL of fluid was removed and a specimen sent for testing as requested. There were no complications. IMPRESSION Successful ultrasound guided left thoracentesis with removal of 200 mL of slightly blood tinged fluid. Dictated by... Gabriel Wilson M.D. THIS IS AN ELECTRONICALLY VERIFIED REPORT Gabriel Wilson M.D. at 07/19/2016 11:22 AM Brenda TD: 07/15/2016 18:48 JOB #: [id number] MEDICAL IMAGING REPORT Page 1 of 1 COPY
--- NOTE | ~2016-07-14 | CR72 ---
[facility] A Service of [facility] RADIOLOGY TEXT RESULTS PATIENT: JUSTYN ELLISON LOCATION: [place] [address] : [birth year] UNIT #: [id number] AGE: [address]: Irene Muse MD SEX: F ORDER DR: [id number] [facility] [address] [facility] [place], [place] [address] [id number] MR#: [id number] Acc #: [id number] NAME: JUSTYN ELLISON. : 1955 SEX: F STUDY DATE/TIME: 07/14/2016 8:55 UNIT: [facility] ROOM: STUDY DESCRIPTION: CR Chest Single View Portable Attending Physician: Jim Jennings M.D. Ordering Physician: Jim Jennings M.D. Primary Care Physician: Kenyatta Madsen MEDICAL IMAGING REPORT This report is preliminary unless electronic signature is present EXAM AP portable chest Date: 07/04/2016 08:55 HISTORY 60-year-old female with complaints of chest pain, abdominal pain, congestion, nausea, which began 3 days ago. History of left kidney cancer. COMPARISON AP portable chest 07/06/2016 05:46. FINDINGS Low volume inspiration. Studies attenuated by body habitus. Dense left lower lobe airspace disease is present, obscuring the diaphragmatic margin. Lesser degree of airspace disease is present in the right lower lobe not thought to be significant change. Probable small bilateral pleural effusions, stable. Stable cardiomegaly. Right chest wall pacemaker leads appear unchanged. No visible pneumothorax. IMPRESSION 1. Persistent dense left lower lobe airspace disease. Correlate clinically for pneumonia. Mild right basilar atelectasis or infiltrate without appreciable change. 2. Stable probable small bilateral pleural effusions. 3. Stable cardiomegaly. Dictated by... Mary Cardoza M.D. THIS IS AN ELECTRONICALLY VERIFIED REPORT Mary Cardoza M.D. at 07/15/2016 8:34 AM LL/tom [facility] A Service of [facility] RADIOLOGY TEXT RESULTS PATIENT: JUSTYN ELLISON LOCATION: [facility] 579-01 : [birth year] UNIT #: [id number] AGE: [address]: Irene Muse MD SEX: F ORDER DR: TD: 07/14/2016 11:53 JOB #: [id number] MEDICAL IMAGING REPORT Page 1 of 1 COPY
--- NOTE | ~2016-07-14 | EKG ---
PATIENT: JUSTYN ELLISON UNIT #: [id number] Ventricular Rate: 75 BPM Atrial Rate: 75 BPM P-R Interval: 160 ms QRS Duration: 92 ms Q-T Interval: 434 ms QTC Calculation(Bezet): 484 ms P [place]: 34 degrees Calculated R [place]: 2 degrees Calculated T [place]: 142 degrees Diagnosis Line: Sinus rhythm with Premature atrial complexes Diagnosis Line: Possible Left atrial enlargement Diagnosis Line: T wave abnormality, consider lateral ischemia Diagnosis Line: Prolonged QT Diagnosis Line: Abnormal ECG Diagnosis Line: When compared with ECG of 05-JUL-2016 09:42, Diagnosis Line: Premature atrial complexes are now Present Diagnosis Line: Questionable change in QRS axis Diagnosis Line: T wave inversion now evident in Anterolateral Diagnosis Line: leads Diagnosis Line: Confirmed by NICKI BARON MD ([id number]) on 07/16/2016 Diagnosis Line: 7:49:16 PM INTERPRETING MD: TOD MIKE
--- NOTE | ~2016-07-14 | CR71 ---
[facility] A Service of [facility] RADIOLOGY TEXT RESULTS PATIENT: JUSTNY ELLISON LOCATION: [facility] 579-01 : 53 UNIT #: [id number] AGE: [address]: Irene Muse MD SEX: F ORDER DR: [id number] [facility] [address] [facility] [place], [place] [address] [id number] I MR#: [id number] Acc #: [id number] NAME: JUSTYN ELLISON. : 1955 SEX: F STUDY DATE/TIME: 07/15/2016 15:01 UNIT: [facility] ROOM: [facility] STUDY DESCRIPTION: CR Chest Single View Attending Physician: Irene Muse M.D. Ordering Physician: Gabriel Wilson M.D. Primary Care Physician: Kenyatta Madsen MEDICAL IMAGING REPORT This report is preliminary unless electronic signature is present EXAM Frontal chest 07/15/2016 INDICATIONS 60-year-old female status post thoracentesis today. History of renal malignancy. TECHNIQUE Frontal chest compared with 07/14/2016 FINDINGS Cardiac silhouette is enlarged but stable. Lung volumes are low and there has been interval increase in bronchovascular crowding or central vascular congestion and interstitial edema. Blunting of the right CP angle unchanged. Interval probable decrease in pleural fluid in the left lung. No distinct postprocedure pneumothorax. Exam is degraded by body habitus. IMPRESSION 1. Lower lung volumes with persistent cardiomegaly and probable increase in vascular congestion and mild interstitial edema. 2. Interval decrease in volume of pleural fluid on the left suspected although the left lung base is under penetrated. 3. Persistent blunting of the right CP angle is unchanged. No distinct pneumothorax. Dictated by... Casper Vieyra M.D. THIS IS AN ELECTRONICALLY VERIFIED REPORT Casper Vieyra M.D. at 07/15/2016 5:06 PM DEBI/chacorta [facility] A Service of [facility] RADIOLOGY TEXT RESULTS PATIENT: JUSTYN ELLISON LOCATION: [facility] 579-01 : [birth year] UNIT #: [id number] AGE: [address]: Irene Muse MD SEX: F ORDER DR: TD: 07/15/2016 16:38 JOB #: [id number] MEDICAL IMAGING REPORT Page 1 of 1 COPY
--- NOTE | ~2016-07-14 | CO ---
Unit #: [id number] #: [id number] Patient: JUSTYN ELLISON [id number] [address] [place], [place] [address] [id number] I MR#: [id number] NAME: JUSTYN ELLISON ROOM: 579 Age: 60 Sex: F Admission Date: 07/14/2016 : 1955 Attending Physician: Irene Muse M.D. Primary Care Physician: Kenyatta Madsen Consultation Date: 07/14/2016 CONSULTATION REPORT REASON FOR CONSULTATION Dialysis needs. HISTORY OF PRESENT ILLNESS Ms. Ellison is a 60-year-old female, familiar to our service, who gets dialysis at [facility] on [facility] on Tuesdays, , and Saturdays. The patient had presented to the emergency room with some left upper quadrant abdominal pain and has been diagnosed with diverticulitis and started on antibiotics. The patient has been in and out of the hospital last month with the most recent discharge from [facility] on 07/11/2016 after she had a pericardiocentesis and drain placed for a pericardial effusion and tamponade. Again, we were asked to see for her dialysis needs as she missed her dialysis today. The patient states that she has had some nausea and vomiting, but denies any diarrhea. There has been no mention of any bloody stools. She denies any chest discomfort or shortness of breath per se. No fevers or chills. PAST MEDICAL HISTORY Significant for end-stage renal disease, renal cell cancer, atrial fibrillation, sick sinus syndrome requiring pacemaker, history of DVTs, diabetes, hyperlipidemia, recent pericardial effusion. PAST SURGICAL HISTORY She has had a left nephrectomy. She has had a pacemaker placed. MEDICATIONS Her home medications are Lortab p.r.n., amiodarone 200 mg a day, baby aspirin daily, calcium acetate t.i.d. with meals, Levemir insulin, Humalog insulin, Synthroid 50 mcg a day, metoprolol 25 mg t.i.d., Renvela t.i.d. with meals, and warfarin is on hold. ALLERGIES She has no known drug allergies. FAMILY HISTORY Noncontributory. SOCIAL HISTORY The patient has no history of tobacco, alcohol, or drug use. REVIEW OF SYSTEMS A complete 12-point review of systems was completed with the above findings. In addition, the patient has not complained of any headache or dizziness. No nosebleed. No sore throat or earache. No hemoptysis. No Unit #: [id number] #: [id number] Patient: JUSTYN ELLISON A bright red blood per rectum or melena. No dysuria or hematuria. No swelling. No rashes or itching. No flank pain. No chills. No night sweats or hot flashes. No intolerance to heat or cold. No bleeding issues. Unless otherwise indicated, the review of systems was negative. PHYSICAL EXAMINATION VITAL SIGNS: Temperature is 97.9, pulse 84, respiratory rate 18, and blood pressure 148/91. GENERAL: This is a pleasant 60-year-old female, who is alert, in no acute distress. HEENT: Head is normocephalic. She does have some bruising around her left eye and facial area, which she says is a chronic issue. Nose shows no nasal drainage or nosebleed. Oropharynx is moist. NECK: Shows no JVD. HEART: Regular rate with no murmur. I do not hear a rub. LUNGS: Have some faint wheezing with diminished breath sounds at the bases. Breathing is nonlabored. ABDOMEN: Soft, with tenderness to palpation more so on the left upper and left lower quadrants. No masses appreciated. EXTREMITIES: No lower extremity clubbing, cyanosis, or edema. SKIN: Dry with no rashes. MUSCULOSKELETAL: No CVA tenderness to palpation. VASCULAR: The patient has a left arm fistula in place with good bruit and thrill. LYMPHATIC: There is no neck or cervical lymphadenopathy. PSYCHIATRIC: Mood and affect appear normal. DIAGNOSTIC STUDIES LABORATORY RESULTS: Procalcitonin was 0.33. UA showed 1+ protein and some white blood cells with culture pending. Chemistry noteworthy for a sodium of 134, potassium was 2.8, chloride 94, bicarb 25, glucose 121, BUN of 41, creatinine of 8, albumin 3.3. INR 1.3. CBC showed a hemoglobin of 11.8. Blood cultures from admission here earlier this month were negative. IMAGING STUDIES: CT of the abdomen and pelvis showed evidence of her previous left nephrectomy with rampart right renal atrophy, sigmoid diverticulitis, basilar consolidations in the lungs with small effusions, small concentric pericardial effusion. Chest x-ray showed some left lower lobe airspace disease and small bilateral effusions. ASSESSMENT AND PLAN 1. End-stage renal disease. The patient is due for dialysis today and that has been ordered. We will hold any heparin due to her recent pericardial effusion. 2. Hyponatremia. This may be related to her recent nausea and vomiting. We will correct this with dialysis tonight. 3. Hyperphosphatemia. We will continue her binders and we will also need to restart her Sensipar, which has been ordered. 4. Diverticulitis, on antibiotics. 5. Pneumonia, on antibiotics. 6. Pericardial effusion with Cardiology seeing. 7. Diabetes, on insulin. 8. History of pacemaker. 9. History of left nephrectomy for cancer in the past. I would like to thank Dr. Alfred for this consult and the opportunity to participate in the evaluation and care of Ms. Ellison. Unit #: [id number] #: [id number] Patient: JUSTYN ELLISON Dictated by... Mic Blanca Jr., MGabriella. AMBAR/david TD: 07/15/2016 07:33 JOB #: [id number] CONSULTATION REPORT Page 1 of 1 X Mic Blanca MD X CONSULTATION REPORT
[~2016-07-14 08:49] MED LIST changes: +COUMADIN
[2016-07-14 10:12] LABS: BASOPHIL# 0.1 X10e3 (0-0.3); BASOPHIL% 0.8 % (0-2.5); EOSINOPHIL# 0.1 X10e3 (0-0.7); HEMATOCRIT 37.4 % (35.0-45.0); HEMOGLOBIN 11.8 gm/dL (12.0-16.0); LYMPHOCYTE# 0.6 X10e3 (1.0-3.5); LYMPHOCYTE% 9.1 % (17.0-45.0); MEAN CELL VOLUME 95.4 FL (83-96); MEAN CORPUSCULAR HEMOGLOBIN 30.1 PG (28-34); MEAN CORPUSCULAR HGB CONC 31.6 g/dL (30-36); MEAN PLATELET VOLUME 7.9 FL (6.5-11.5); MONOCYTE# 0.7 X10e3 (0-1.0); MONOCYTE% 10.5 % (3.0-12.0); NEUTROPHIL# 5.5 X10e3 (1.5-7.1); NEUTROPHIL% 78.6 % (40-75); PLATELET COUNT 275 X10e3 (140-420); RED BLOOD COUNT 3.92 X10e (3.90-5.30); RED CELL DISTRIBUTION WIDTH 17.5 % (11.0-15.5)
[2016-07-14 10:14] LABS: DIFF IND NO
[2016-07-14 10:30] LABS: INR 1.3
[2016-07-14 10:31] LABS: PROTHROMBIN TIME (PATIENT) 13.4 SECONDS (9.6-11.5)
[2016-07-14 10:45] LABS: ALBUMIN SERUM 3.3 g/dL (3.5-5.0); BILIRUBIN, DIRECT 0.3 mg/dL (0.0-0.2); BILIRUBIN,INDIRECT 0.5 mg/dL (0.0-0.9); BILIRUBIN,TOTAL 0.8 mg/dL (0.2-2.0); BUN/CREATININE RATIO 5.12; CALCIUM SERUM 8.8 mg/dL (8.4-10.2); GLOM FILT RATE Estimated 4.9 mL/min (>60); POTASSIUM 4.8 mmol/L (3.5-5.1)
[2016-07-14 14:09] LABS: URINE SOURCE CLEAN CATCH
[2016-07-14 14:23] LABS: CULTURE INDICATED? YES; URBCS1 AUWI 0-2 /[HPF] (0-2); URINE APPEARANCE CLEAR; URINE BACTERIA AUWI 1+ (NEGATIVE); URINE BILIRUBIN NEG (NEG); URINE BLOOD NEG (NEG); URINE COLOR YELLOW; URINE GLUCOSE 100 MG/DL (NEG); URINE KETONE TRACE (NEG); URINE LEUKOCYTE ESTERASE 1+ (NEG); URINE NITRATE NEG (NEG); URINE PROTEIN 1+ (NEG); URINE SPECIFIC GRAVITY 1.017 (1.003-1.035); URINE SQUAMOUS EPITHELIAL CELL MOD /[HPF]
[2016-07-14 14:30] LABS: U HYALINE CASTS AUWI 0-2 /[LPF]
[2016-07-14 14:42] LABS: CK TOTAL 34 IU/L (26-140)
[2016-07-14] MEDS ORDERED: HYDROCODON-ACE1 EAC7 PO (16:06)
[2016-07-14] MEDS ORDERED: ASPIRIN81 MG PO (16:08)
[2016-07-14] MEDS ORDERED: AMIODARONE HCL200 MG PO (16:08)
[2016-07-14] MEDS ORDERED: CALCIUM ACETAT667 MG PO (16:09)
[2016-07-14] MEDS ORDERED: LEVEMIR FL100 UNIT/1 SUBQ (16:09)
[2016-07-14] MEDS ORDERED: HUMALOG100 UNIT/1 SUBQ (16:10)
[2016-07-14] MEDS ORDERED: METOPROLOL TAR25 MG (16:11)
[2016-07-14] MEDS ORDERED: TIROSINT50 MCG PO (16:11)
[2016-07-14] MEDS ORDERED: RENVELA800 MG PO (16:12)
[2016-07-14] MEDS ORDERED: [UNRECOGNIZED DRUG - REMARK] (16:13)
[2016-07-14 19:25] LABS: CK TOTAL 34 IU/L (26-140)
[2016-07-15 05:24] LABS: HEMATOCRIT 34.9 % (35.0-45.0); HEMOGLOBIN 11.1 gm/dL (12.0-16.0); MEAN CELL VOLUME 94.9 FL (83-96); MEAN CORPUSCULAR HEMOGLOBIN 30.2 PG (28-34); MEAN CORPUSCULAR HGB CONC 31.9 g/dL (30-36); MEAN PLATELET VOLUME 7.8 FL (6.5-11.5); RED BLOOD COUNT 3.68 X10e (3.90-5.30); RED CELL DISTRIBUTION WIDTH 17.3 % (11.0-15.5); WHITE BLOOD COUNT 5.9 X10e3 (4.0-10.5)
[2016-07-15 05:55] LABS: INR 1.3; PROTHROMBIN TIME (PATIENT) 14.2 SECONDS (9.6-11.5)
[2016-07-15 06:39] LABS: ALBUMIN SERUM 2.8 g/dL (3.5-5.0); BILIRUBIN,TOTAL 0.7 mg/dL (0.2-2.0); BUN/CREATININE RATIO 3.95; CALCIUM SERUM 8.5 mg/dL (8.4-10.2); CREATININE SERUM 4.3 mg/dL (0.6-1.4); GLOM FILT RATE Estimated 10.4 mL/min (>60); MAGNESIUM 1.9 mg/dL (1.6-3.0); PHOSPHOROUS 3.5 mg/dL (2.5-4.6); POTASSIUM 4.1 mmol/L (3.5-5.1); PROTEIN TOTAL SERUM 5.8 g/dL (6.0-8.3)
[2016-07-15 09:49] LABS: LEGIONELLA AG URINE NEG (NEG)
[2016-07-15 10:47] LABS: CK TOTAL 40 IU/L (26-140)
[2016-07-15 15:51] LABS: PROTEIN, BODY FLUID 3.3 gm/dL
[2016-07-15 16:17] LABS: BF TOTAL NUCLEATED CELL COUNT 672 CMM (0-100); BODY FLUID APPEARANCE BLOODY; BODY FLUID RBC 36887 CMM; BODY FLUID SOURCE PLEURAL
[2016-07-17 07:55] LABS: HEMATOCRIT 34.8 % (35.0-45.0); HEMOGLOBIN 11.2 gm/dL (12.0-16.0); MEAN CELL VOLUME 94.8 FL (83-96); MEAN CORPUSCULAR HEMOGLOBIN 30.4 PG (28-34); MEAN CORPUSCULAR HGB CONC 32.1 g/dL (30-36); MEAN PLATELET VOLUME 7.7 FL (6.5-11.5); RED BLOOD COUNT 3.67 X10e (3.90-5.30); WHITE BLOOD COUNT 4.6 X10e3 (4.0-10.5)
[2016-07-17 08:33] LABS: ALBUMIN SERUM 2.8 g/dL (3.5-5.0); BILIRUBIN,TOTAL 0.6 mg/dL (0.2-2.0); BUN/CREATININE RATIO 3.15; CALCIUM SERUM 8.2 mg/dL (8.4-10.2); CREATININE SERUM 3.8 mg/dL (0.6-1.4); GLOM FILT RATE Estimated 12.1 mL/min (>60); POTASSIUM 4.4 mmol/L (3.5-5.1)
[2016-07-17] MEDS ORDERED: FLAGYL PO (15:03)
[2016-07-17] MEDS ORDERED: LEVAQUIN PO (15:03)
[2016-07-17] MEDS ORDERED: SENSIPAR30 MG PO (15:04)
== END 2016-07-17 15:55 | disposition home or self-care (01) | DRG 391 ==
LOC: CED 08:49 → CEDOF 12:30 → C5C 16:55
PROVIDERS: Emergency Medicine; Family Medicine; Internal Medicine
PROC: 5A1D60Z (ICD-10-PCS; 2016-07-14)
PROC: B246ZZZ Ultrasonography of Right and Left Heart (ICD-10-PCS; 2016-07-14)
PROC: 0W9B3ZX Drainage of Left Pleural Cavity, Percutaneous Approach, Diagnostic (ICD-10-PCS; principal; 2016-07-15)
DX: K57.32 Diverticulitis of large intestine without perforation or abscess without bleeding (principal); J15.6 Pneumonia due to other Gram-negative bacteria; J90 Pleural effusion, not elsewhere classified; I12.0 Hypertensive chronic kidney disease with stage 5 chronic kidney disease or end stage renal disease; N18.6 End stage renal disease; I31.3 Pericardial effusion (noninflammatory); E87.1 Hypo-osmolality and hyponatremia; E44.1 Mild protein-calorie malnutrition; I48.0 Paroxysmal atrial fibrillation; E11.9 Type 2 diabetes mellitus without complications; E78.5 Hyperlipidemia, unspecified; E21.3 Hyperparathyroidism, unspecified; E03.9 Hypothyroidism, unspecified; G47.33 Obstructive sleep apnea (adult) (pediatric); Z90.49 Acquired absence of other specified parts of digestive tract; Z90.710 Acquired absence of both cervix and uterus; Z83.3 Family history of diabetes mellitus; Z79.82 Long term (current) use of aspirin; Z79.4 Long term (current) use of insulin; Z86.711 Personal history of pulmonary embolism; Z85.53 Personal history of malignant neoplasm of renal pelvis; Z90.5 Acquired absence of kidney
CPT/HCPCS: 36415; 71010; 74176; 80048; 80053; 80076; 80202; 81003; 82042; 82150; 82308; 82550; 82945; 82947; 83036; 83615; 83690; 83735; 84100; 84157; 84443; 84484; 85025; 85027; 85610; 87040; 87070; 87086; 87205; 87340; 87449; 87899; 88108; 88305; 89051; 93005; 93306; 94760; 96374; 96375; 99285; J0696; J1815; J1956; J2270; J2405; J2543; J3370

== ENCOUNTER 2016-08-03 19:00 | Inpatient (IN) | payer MEDICARE ==
--- NOTE | ~2016-08-03 | CO ---
Unit #: [id number] #: [id number] Patient: JUSTYN ELLISON [id number] [address] [place], [place] [address] [id number] I MR#: [id number] NAME: JUSTYN ELLISON. ROOM: 554 Age: 61 Sex: F Admission Date: 08/03/2016 : 1955 Attending Physician: Irene Muse M.D. Primary Care Physician: Nancy Primary Care Physician Consultation Date: 08/04/2016 CONSULTATION REPORT REASON FOR CONSULT End stage renal disease. Thank you very much for having us see this patient again. Ms. Justyn Ellison is a 61-year-old female who I know well from taking care of her at dialysis although who is on dialysis every Wednesday, , Wednesday under Dr. Wolf in our group now, who presented to the hospital with some increasing shortness of breath, epigastric/lower chest discomfort, nausea, nonproductive cough, who was admitted for chest pain. She underwent a CT angiogram to rule out PE which was negative. She does have a history of pericardial effusion requiring drainage in the past. CT showed just a very small amount of pericardial effusion. She states this morning that she still has a lot of epigastric discomfort, some mild shortness of breath. She denies any nausea or vomiting currently. She states she has noted some mild increased swelling at home. She denies any recent seizures or strokes. PAST MEDICAL HISTORY 1. History of sick sinus syndrome and atrial fibrillation, status post permanent pacemaker insertion last month. 2. History of large pericardial effusion in the past, status post pericardiocentesis and drainage. 3. History of end stage renal disease, on dialysis every Wednesday, , Wednesday. 4. History of diabetes mellitus. 5. History of hypertension. 6. Hyperlipidemia. 7. History of renal cell CA, status post left nephrectomy in the past with postop bleeding. 8. History of hypothyroidism. 9. History of diverticulitis. 10. Status post appendectomy. 11. Status post cholecystectomy. 12. Status post hysterectomy. ALLERGIES No known drug allergies. MEDICATIONS Her medicines at home include: 1. Amiodarone 200 mg a day. 2. Lopressor 25 mg t.i.d. 3. Insulin. Unit #: [id number] #: [id number] Patient: JUSTYN ELLISON 4. Sensipar 30 mg a day. 5. Aspirin 81 mg a day. 6. Lortab p.r.n. for pain. 7. Renvela 800 mg t.i.d. with meals. 8. PhosLo 667 mg t.i.d. with meals. 9. Synthroid 0.05 mg daily. 10. Coumadin is on hold still since I guess when she left the hospital last month. FAMILY HISTORY Positive for diabetes. SOCIAL HISTORY She lives with her family. She doesn't smoke or drink. REVIEW OF SYSTEMS As mentioned in the HPI, otherwise negative. PHYSICAL EXAMINATION GENERAL: She is alert. VITAL SIGNS: Temperature is 98.4, pulse 60 to 71, blood pressure is 139 to 183/70 to 100. HEENT: Normocephalic, atraumatic. Her pupils are equal, round, reactive to light. Extraocular muscles are intact. Hearing appears to be normal. Mouth is clear. No erythema, no exudate. NECK: Supple, no adenopathy. CARDIAC: She has a regular rhythm currently without a rub. No S3 or S4. LUNGS: Decreased breath sounds at the bases, a few rales at the bases. Upper lungs are clear. ABDOMEN: Bowel sounds positive. She has mild epigastric discomfort on palpitation. No masses felt. No rebound or guarding. EXTREMITIES: She has some trace lower extremity swelling. She has a fistula in her left up with a good thrill. She had some bruising underneath her fistula area. : Deferred. DIAGNOSTIC STUDIES LABORATORY DATA: Sodium 135, potassium 3.5, chloride is 100, bicarb is 26. BUN and creatinine of 25 and 7.0, glucose is 144, calcium is 9.0. Troponin is 0.03. Hemoglobin is 10.3, white count is 4900, platelets 158,000. IMAGING: CT angiogram of the chest as mentioned above. ASSESSMENT AND PLAN 1. End stage renal disease: Will plan on dialyzing her today. Will try to remove 4 L of fluid if possible. Will continue to intermittently follow electrolytes and volume status while she is here. 2. Hyperphosphatemia: Again, patient is restarted on PhosLo and Renagel. Will continue. 3. Chest pain, shortness of breath, unsure combination. It could be fluid related although her belly I wonder if she could have some sort of just severe reflux. She is on Protonix now 40 mg a day and certainly agree with continuing that and, from a renal standpoint, no contraindications at this point in time. 4. History of atrial fibrillation in the past: Sounds fairly regular currently. Coumadin has been on hold. 5. Hypertension: Will follow trends, challenge weight removal. Unit #: [id number] #: [id number] Patient: JUSTYN ELLISON Dictated by..John Duarte/lucius TD: 08/04/2016 11:00 JOB #: [id number] CONSULTATION REPORT Page 1 of 1 X Adwoa Hidalgo MD X CONSULTATION REPORT
--- NOTE | ~2016-08-03 | US84 ---
[id number] [facility] [address] [place], [place] [address] [id number] I MR#: [id number] Acc #: [id number] NAME: JUSTYN ELLISON : 1955 SEX: F STUDY DATE/TIME: 08/04/2016 20:11 UNIT: C5B ROOM: 554 STUDY DESCRIPTION: US LE Veins Complete Haresh Stdy Attending Physician: Irene Muse M.D. Ordering Physician: Miesha Pinto M.D. Primary Care Physician: No Primary Care Physician MEDICAL IMAGING REPORT This report is preliminary unless electronic signature is present EXAM Bilateral lower extremity venous duplex. DATE OF EXAM 08/04/2016 HISTORY Bilateral lower extremity edema for 2 weeks. Evaluate for deep vein thrombosis. TECHNIQUE Venous ultrasound examination of both lower extremities was performed using grayscale, spectral Doppler and color flow Doppler imaging. FINDINGS The examination is negative. There is no evidence of deep venous thrombus from the groin to the lower calf bilaterally. Visualized greater saphenous veins are also patent. IMPRESSION Negative examination. No evidence of lower extremity DVT. Dictated by... Mohamud Rios M.D. THIS IS AN ELECTRONICALLY VERIFIED REPORT Mohamud Rios M.D. at 08/05/2016 2:15 PM ESTER/nina TD: 08/04/2016 23:09 JOB #: [id number] MEDICAL IMAGING REPORT Page 1 of 1 COPY
--- NOTE | ~2016-08-03 | EKG ---
PATIENT: JUSTYN ELLISON UNIT #: [id number] Ventricular Rate: 67 BPM Atrial Rate: 67 BPM P-R Interval: 198 ms QRS Duration: 90 ms Q-T Interval: 490 ms QTC Calculation(Bezet): 517 ms P [place]: 66 degrees Calculated R [employer] [place]: 50 degrees Calculated T [employer] [place]: 104 degrees Diagnosis Line: Atrial-paced rhythm with occasional sinus Diagnosis Line: complexes Diagnosis Line: T wave abnormality, consider anterolateral Diagnosis Line: ischemia Diagnosis Line: Prolonged QT Diagnosis Line: Abnormal ECG Diagnosis Line: Diagnosis Line: Confirmed by SUSAN PACK MD ([id number]) on Diagnosis Line: 08/03/2016 10:02:26 PM INTERPRETING MD: ANIRUDH
--- NOTE | ~2016-08-03 | HP ---
Unit #: [id number] #: [id number] Patient: JUSTYN ELLISON [id number] [address] [place], [place] [address] [id number] E MR#: [id number] NAME: JUSTYN ELLISON. ROOM: Age: 61 Sex: F Admission Date: 08/03/2016 : 1955 Attending Physician: Marcell Cleary M.D. HISTORY AND PHYSICAL CHIEF COMPLAINT Pleuritic chest pain. HISTORY OF PRESENT ILLNESS This 61-year-old female with end-stage renal failure, on dialysis, sick sinus syndrome, diabetes mellitus, and previous pericardiocentesis for a large pericardial effusion, is admitted for pleuritic chest pain. The patient states that she was in her usual state of health until 1 o'clock this morning when she developed increasing shortness of breath with pleuritic chest pain in the center of her chest radiating a little bit to her left. She does note a dry cough with the above and some chills. Over the past week, she has been experiencing increasing pedal edema, right more so than the left. She also notes increasing dysphagia for solids and liquids over the past there weeks with decreased p.o. intake over the past four days. She was concerned that her current pain is similar to her pericarditis. She presented to this emergency department early this evening somewhat hypertensive, but the rest of her vital signs are stable. A chest x-ray shows small bibasilar pleural effusions with partial clearing of the left base, stable cardiomegaly, and vascular congestion. She was given nitroglycerin which made her pain worse and was also given aspirin. In reviewing her records, she had a cardiac catheterization in 2016 showing normal coronary arteries with normal LV function. She receives her dialysis Tuesdays, , and Saturdays, and today is Wednesday. PAST MEDICAL HISTORY 1. Sick sinus syndrome/atrial fibrillation requiring permanent pacemaker insertion last month. She was found to have a large pericardial effusion with early tamponade requiring admission to [facility] where she underwent pericardiocentesis and pericardial drain. 2. End-stage renal failure, on hemodialysis, followed by Dr. Hidalgo, requiring dialysis Tuesdays, , and Saturdays. 3. Adult-onset diabetes mellitus. 4. Essential hypertension. 5. Hyperlipidemia. 6. Hyperparathyroidism. 7. Renal cell CA, status post left nephrectomy. 8. Hypothyroidism. 9. Admission three weeks ago for diverticulitis. The patient also had a pleural effusion which was exudative and underwent a thoracentesis. 10. Appendectomy. 11. Cholecystectomy. Unit #: [id number] #: [id number] Patient: JUSTYN ELLISON 12. Hysterectomy. 13. Right breast biopsy. 14. Left upper arm dialysis fistula. 15. Left nephrectomy. ALLERGIES None. HOME MEDICATIONS 1. Amiodarone 200 mg daily. 2. Lopressor 25 mg t.i.d. 3. Levemir 10 units subcutaneous at bedtime. 4. Sensipar 30 mg daily. 5. Aspirin 81 mg daily. 6. Lortab 5 q.4 hours as needed. 7. Renvela 800 mg t.i.d. 8. PhosLo 667 mg t.i.d. with meals. 9. Synthroid 0.05 mg daily. 10. Coumadin is still on hold. FAMILY HISTORY Diabetes mellitus and malignancy. SOCIAL HISTORY The patient lives with her family. She is a lifelong nonsmoker and does not drink alcohol. REVIEW OF SYSTEMS Somewhat difficult to obtain due to language barrier. Patient is Greenlandic speaking, and I did use a airborne operations. PHYSICAL EXAMINATION GENERAL: A pleasant, 61-year-old, moderately obese female currently in no acute distress. VITAL SIGNS: Temperature 98, pulse 60, respirations 18, blood pressure 171/76, and O2 saturation is 100% on room air. HEENT: Eyes PERRLA. Extraocular muscles are intact. Pharynx is benign. NECK: Without significant JVD. CHEST: Some crackles particularly at the left base. CARDIAC: Normal S1 and S2 with a very soft systolic murmur, irregularly irregular. ABDOMEN: Bowel sounds are present. There is some epigastric tenderness without rebound or guarding. No definite hepatosplenomegaly or masses. EXTREMITIES: With mild edema bilaterally. Pedal pulses are diminished. There is some pain in the left calf with flexion of the left foot. NEUROLOGIC: Patient is awake, alert, and oriented. Cranial nerves are intact. Equal strength throughout. DIAGNOSTIC STUDIES ADMISSION LABORATORY: Hematocrit is 34.8 with normal white count and platelet count. Negative cardiac markers. SMA-12 with glucose of 153, creatinine 6.4, potassium 3.4, chloride 98, and alkaline phosphatase 118. IMAGING: Chest x-ray shows small bibasilar pleural effusions, mild bibasilar atelectasis with partial clearing of the left base, and what appears to be stable vascular congestion. CARDIOLOGY: EKG shows atrial-paced rhythm and some nonspecific ST wave Unit #: [id number] #: [id number] Patient: JUSTYN ELLISON abnormalities which are not appreciably changed from before. ASSESSMENT 1. Pleuritic chest pain. 2. Status post permanent pacemaker insertion with normal coronary arteries in 2016 on cardiac catheterization with normal left ventricular function. 3. End-stage renal failure, on hemodialysis Tuesdays, , and Saturdays with left forearm fistula. Patient received dialysis two days ago. 4. Adult-onset diabetes mellitus with peripheral neuropathy. 5. Essential hypertension. 6. Left nephrectomy for renal cell carcinoma. 7. Complaints of new dysphagia. PLANS 1. CTA of the chest. 2. Serial cardiac enzymes. 3. Proton pump inhibitor. 4. Check venous Dopplers of the legs. 5. SCDs for DVT prophylaxis. 6. Will need GI consultation at some point during this hospitalization. 7. Further plans depending on CTA of the chest. 1. Dictated by John Monk/talha TD: 08/03/2016 21:33 JOB #: [id number] CC: 2u HISTORY AND PHYSICAL Page 1 of 1 X Miesha Pinto MD X HISTORY AND PHYSICAL
--- NOTE | ~2016-08-03 | CT16 ---
[facility] A Service of [facility] & [facility] RADIOLOGY TEXT RESULTS PATIENT: JUSTYN ELLISON LOCATION: [place] [address] : [birth year] UNIT #: [id number] AGE: [address]: Irene Muse MD SEX: F ORDER DR: [id number] [facility] [address] [place], [place] [address] [id number] I MR#: [id number] Acc #: [id number] NAME: JUSTYN ELLISON. : 1955 SEX: F STUDY DATE/TIME: 08/03/2016 22:58 UNIT: [facility] ROOM: [facility] STUDY DESCRIPTION: CT Angio Chest for PE Attending Physician: Miesha Pinto M.D. Ordering Physician: Miesha Pinto M.D. Primary Care Physician: Primary Care Physician No MEDICAL IMAGING REPORT This report is preliminary unless electronic signature is present EXAM CTA chest with contrast, pulmonary embolism protocol. DATE 08/03/2016 HISTORY 61-year-old female with shortness of breath, cough and chest congestion which began at 0100 today. On dialysis. Diabetes. Hypertension. History of breast cancer. COMPARISON CT chest PE protocol 08/07/2013. AP portable chest 08/03/2016. PROCEDURE 2 mm axial images through the chest after IV contrast administration. 3-D coronal MIP reformatted images were also obtained. This CT exam was performed with one or more of the following radiation dose reduction techniques: Automatic exposure control, adjustment of mA and/or kV according to patient size, and iterative reconstruction. FINDINGS No pulmonary embolism is seen. There is mild cardiac enlargement, which appears increased since 2013, and there is trace pericardial effusion. Dense coronary artery calcifications are present. Pacemaker device is in place. No thoracic aortic aneurysm or aortic dissection is seen, with mild calcific atherosclerosis within the thoracic aorta. Central pulmonary arteries appear mildly dilated, which are nonspecific and could represent changes of pulmonary arterial hypertension in the appropriate clinical context. Comparison is also made to a more recent noncontrast CT chest from 07/05/2016. Since that time, the pericardial effusion has [facility] Service of [facility] RADIOLOGY TEXT RESULTS PATIENT: JUSTYN ELLISON LOCATION: [place] [address] : [birth year] UNIT #: [id number] AGE: [address]: Irene Muse MD SEX: F ORDER DR: minoo. The heart size is probably stable. Small right and trace left pleural effusions are present. Bibasilar airspace disease is present, right greater than left, which may represent atelectasis. Pneumonia not excluded. Mild atelectatic type changes are also seen within the vicinity of the lingula and right middle lobe, and to a lesser degree the posterior upper lobes. Shotty mediastinal lymph nodes are thought to be benign and reactive. The left kidney is surgically absent. Small quantity perihepatic ascites is present. Gallbladder is not visualized in keeping with previous study history of cholecystectomy. IMPRESSION 1. No pulmonary embolism. No thoracic aortic aneurysm or aortic dissection is seen. 2. Mild cardiac enlargement appears stable since 07/05/2016 but appears increased compared to a more remote CT chest from 2013. 3. Trace concentric pericardial effusion, which appears improved compared to the noncontrast CT chest of 07/05/2016. 4. Small right, trace left pleural effusions. 5. Right greater than left bibasilar airspace disease. Atelectasis favored. Pneumonia not excluded. Mild atelectatic changes are also scattered within the lingula, right middle lobe and bilateral upper lobes. 6. Central pulmonary arteries appear mildly dilated or enlarged. This is nonspecific. Correlate clinically for pulmonary arterial hypertension. 7. Trace perihepatic ascites. 8. Left nephrectomy and cholecystectomy. Dictated by... Mary Cardoza M.D. THIS IS AN ELECTRONICALLY VERIFIED REPORT Mary Cardoza M.D. at 08/04/2016 9:59 PM Kirsten/cyn TD: 08/04/2016 00:04 JOB #: [id number] MEDICAL IMAGING REPORT Page 1 of 1 COPY
--- NOTE | ~2016-08-03 | CR72 ---
[facility] A Service of [facility] RADIOLOGY TEXT RESULTS PATIENT: JUSTYN ELLISON LOCATION: [place] [address] : [birth year] UNIT #: [id number] AGE: [address]: Irene Muse MD SEX: F ORDER DR: [id number] [facility] [address] [place], [place] [address] [id number] E MR#: [id number] Acc #: [id number] NAME: JUSTYN ELLISON : 1955 SEX: F STUDY DATE/TIME: 08/03/2016 18:43 UNIT: [facility] ROOM: STUDY DESCRIPTION: CR Chest Single View Portable Attending Physician: Marcell Cleary M.D. Ordering Physician: Marcell Cleary M.D. Primary Care Physician: Primary Care Physician No MEDICAL IMAGING REPORT This report is preliminary unless electronic signature is present EXAM Portable chest HISTORY Chest pain, shortness of air and cough and congestion since yesterday. FINDINGS There are small bilateral pleural effusions. Moderate cardiac enlargement and mild vascular congestion. Mild bibasilar atelectasis. No airspace consolidation. Right subclavian pacer leads extend into the right atrium and right ventricle. IMPRESSION There are small bilateral pleural effusions and there is mild bibasilar atelectasis, with partial interval clearing of the left base compared to 07/15/2016. No new infiltrates. Stable cardiac enlargement and mild vascular congestion. Dictated by... Bhargav Jean M.D. THIS IS AN ELECTRONICALLY VERIFIED REPORT Bhargav Jean M.D. at 08/04/2016 2:43 PM DFL/psc TD: 08/03/2016 21:35 JOB #: [id number] MEDICAL IMAGING REPORT Page 1 of 1 COPY
--- NOTE | ~2016-08-03 | DS ---
Unit #: [id number] #: [id number] Patient: JUSTYN ELLISON [id number] [address] [address] [id number] I MR#: [id number] NAME: JUSTYN ELLISON. ROOM: 554 Age: 61 Sex: F Admission Date: 08/03/2016 : 1955 Discharge Date: 08/06/2016 Attending Physician: Irene Muse M.D. Primary Care Physician: Primary Care Physician No DISCHARGE SUMMARY DISCHARGE DIAGNOSES 1. Pleuritic chest pain. 2. Dysphagia. 3. Gastric ulcer on EGD. 4. End-stage renal disease on hemodialysis. 5. Hypertension, uncontrolled. 6. Diabetes mellitus type 2, uncontrolled. 7. Recent healthcare-associated pneumonia. 8. Pericardial effusion. 9. Bilateral pleural effusion. 10. Recent acute diverticulitis. 11. Paroxysmal atrial fibrillation. Coumadin is on hold secondary to recent pericardiocentesis. 12. Hyperlipidemia. 13. Hyperparathyroidism. 14. History of renal malignancy, status post nephrectomy. 15. Hypothyroidism. CONSULTATIONS 1. Dr. Hidalgo 2. Dr. Sifuentes PROCEDURES The patient had an EGD which shows normal esophagus, significant ulceration with induration in the gastric fundal area, appears chronic, multiple biopsies taken. DIAGNOSTIC STUDIES LABORATORY: Glucose 83, sodium 139, potassium 4.7, creatinine 0.7. WBC 4.7, hemoglobin 10.3, platelets 160. Blood cultures negative. IMAGING: Ultrasound of the extremities negative. CAT scan of the chest shows no pulmonary embolism. Mild cardiac enlargement present. Bibasilar atelectasis present. ALLERGIES None. DISCHARGE MEDICATIONS 1. Amiodarone 200 p.o. daily. 2. Lopressor 25 p.o. t.i.d. 3. Levemir 10 units subcu h.s. 4. Sensipar 30 mg p.o. daily. Unit #: [id number] #: [id number] Patient: JUSTYN ELLISON 5. Aspirin 81 daily. 6. Lortab 5 mg one tablet q.4 h. p.r.n. pain. 7. Renvela 800 mg t.i.d. 8. Protonix 40 mg p.o. b.i.d. 9. PhosLo 667 mg t.i.d. with meals. 10. Synthroid 50 mcg p.o. daily. 11. Coumadin is on hold until 08/16/2016 after seen by PCP. Please resume. HOSPITAL COURSE This is a 61-year-old admitted because of chest pain. Chest pain, atypical, secondary to pleuritic pain. Also could be from gastric ulcer. Severe dysphagia with pain. Patient had EGD which shows gastric ulcer. Patient was started on IV Protonix. Patient will be discharged on p.o. Protonix. No pneumonia. End-stage renal disease on hemodialysis. Hypertension, uncontrolled secondary to the end-stage renal disease. Continue with hemodialysis. Recent pericardiocentesis with pericardial effusion. Patient had CAT scan which did not show any pericardial effusion. Currently, patient's pain is better. DISCHARGE DISPOSITION Patient will be discharged home after hemodialysis today. FOLLOWUP 1. Follow with PCP in one week time. 2. Follow with Dr. Sifuentes in four weeks' time. 3. Follow with Dr. Bean in two weeks' time. Dictated by... John Ni/marlo TD: 08/06/2016 18:00 JOB #: [id number] Unit #: [id number] #: [id number] Patient: JUSTYN ELLISON Andreia DISCHARGE SUMMARY Page 1 of 1 X Irene Muse MD DISCHARGE SUMMARY
--- NOTE | ~2016-08-03 | CO ---
Unit #: [id number] #: [id number] Patient: JUSTYN ELLISON [id number] [address] [address] [id number] I MR#: [id number] NAME: JUSTYN ELLISON. ROOM: 554 Age: 61 Sex: F Admission Date: 08/03/2016 : 1955 Attending Physician: Irene Muse M.D. Primary Care Physician: No Primary Care Physician CONSULTATION REPORT REASON FOR CONSULTATION Dysphagia, epigastric pain. HISTORY OF PRESENT ILLNESS The patient is a pleasant 61-year-old female. She states she was in her usual state of health until this morning where she developed increasing shortness of breath with chest pain, epigastric pain, some nausea and vomiting. She does report increasing dysphagia, worse with solids and liquids. She does report a long history of acid reflux. Denies fevers, chills. PAST MEDICAL HISTORY 1. Sick sinus syndrome/atrial fibrillation requiring a pacemaker placement last month. 2. End-stage renal failure on hemodialysis. 3. Diabetes. 4. Hypertension. 5. Hyperlipidemia. 6. Hyperparathyroidism. 7. Renal cell cancer, status post left nephrectomy. 8. Hypothyroidism. 9. History of diverticulosis with recent admission for acute diverticulitis about three weeks ago. 10. Appendectomy. 11. Cholecystectomy. 12. Hysterectomy. 13. Right breast biopsy. 14. Left upper arm dialysis fistula placement. 15. Left nephrectomy. ALLERGIES None. HOME MEDICATIONS 1. Amiodarone. 2. Lopressor. 3. Levemir. 4. Sensipar. 5. Aspirin. 6. Lortab. 7. Renvela. 8. Phos-Lo. 9. Synthroid. 10. Coumadin, which is on hold. Unit #: [id number] #: [id number] Patient: JUSTYN ELLISON FAMILY HISTORY Notable for diabetes. SOCIAL HISTORY Patient lives with her family. She does not smoke, drink alcohol, or use illicit drugs. REVIEW OF SYSTEMS Negative except what was mentioned in the HPI. PHYSICAL EXAMINATION GENERAL: The patient is a very pleasant 61-year-old female currently in no acute distress. VITAL SIGNS: Temperature 98.2, pulse 66, respirations 17, blood pressure 124/72. HEENT: PERRLA. NECK: Supple. CARDIAC: S1, S2. LUNGS: Clear to auscultation. ABDOMEN: Soft, rounded, nontender, nondistended. Positive bowel sounds. NEUROLOGIC: The patient is alert and oriented x3. DIAGNOSTIC STUDIES LABORATORY: BUN and creatinine are 25 and 7 respectively. Troponin was negative x2. White count is 4.9, hemoglobin 10.3, hematocrit 31.9, platelets 158,000. Hemoglobin does appear to be stable from previous admissions. ASSESSMENT AND PLAN 1. Epigastric pain, dysphagia: Will plan esophagogastroduodenoscopy for the morning. Continue proton pump inhibitor therapy for now. Further recommendations to follow scope. 2. End-stage renal disease on hemodialysis per Dr. Hidalgo. 3. Chest pain: Troponin currently negative. Will plan gastrointestinal workup for further evaluation. Thank you for this interesting consult. Will continue to follow along. Dictated by... Tish Sims A.P.R.N. for John Reid/mary lou TD: 08/04/2016 16:14 JOB #: [id number] Unit #: [id number] #: [id number] Patient: JUSTYN ELLISNO CONSULTATION REPORT Page 1 of 1 X X CONSULTATION REPORT
--- NOTE | ~2016-08-03 | OR ---
Unit #: [id number] #: [id number] Patient: JUSTYN ELLISON [id number] [address] [address] [id number] I MR#: [id number] NAME: JUSTYN ELLISON ROOM: 554 Date of Procedure: 08/05/2016 Admission Date: 08/03/2016 Surgeon: Ronnie Sifuentes M.D. : 1955 Attending Physician: Irene Muse M.D. Primary Care Physician: Nancy Primary Care Physician PROCEDURE OPERATIVE NOTE PROCEDURE PERFORMED EGD with biopsies. INDICATION Patient with atypical chest pain, dysphagia, undergoing evaluation with upper endoscopy. MEDICATION Monitored anesthesia. POSTOP FINDINGS 1. Normal esophagus. No stricture, rings or malignancy was seen. 2. Significant ulceration with induration in the gastric fundic area appears chronic. Multiple biopsies taken from edges. 3. Normal duodenum and distal duodenum. PLAN Followup on the pathology report. Continue PPI therapy. DESCRIPTION OF PROCEDURE The patient was explained the procedure, risks and benefits along with the risks and benefits of anesthesia. She was brought to the endoscopy room. Propofol anesthesia was given. A bite block was placed. Scope was passed down the mouth and esophagus, stomach, duodenum and distal duodenum findings as described. Biopsies taken. Gently, I pulled it out of patient's mouth. She tolerated it well. Dictated by... John Reid/susy TD: 08/06/2016 07:47 JOB #: [id number] Unit #: [id number] #: [id number] Patient: JUSTYN ELLISON PROCEDURE OPERATIVE NOTE Page 1 of 1 X Ronnie Sifuentes MD X PROCEDURE OPERATIVE NOTE
[2016-08-03 17:11] LABS: BASOPHIL# 0.1 X10e3 (0-0.3); BASOPHIL% 1.3 % (0-2.5); EOSINOPHIL# 0.3 X10e3 (0-0.7); EOSINOPHIL% 4.8 % (0.0-7.0); HEMATOCRIT 34.8 % (35.0-45.0); HEMOGLOBIN 10.9 gm/dL (12.0-16.0); LYMPHOCYTE# 0.9 X10e3 (1.0-3.5); LYMPHOCYTE% 16.7 % (17.0-45.0); MEAN CORPUSCULAR HEMOGLOBIN 29.3 PG (28-34); MEAN CORPUSCULAR HGB CONC 31.2 g/dL (30-36); MEAN PLATELET VOLUME 8.1 FL (6.5-11.5); MONOCYTE# 0.6 X10e3 (0-1.0); MONOCYTE% 12.3 % (3.0-12.0); NEUTROPHIL# 3.4 X10e3 (1.5-7.1); NEUTROPHIL% 64.9 % (40-75); PLATELET COUNT 175 X10e3 (140-420); RED CELL DISTRIBUTION WIDTH 19.2 % (11.0-15.5); WHITE BLOOD COUNT 5.3 X10e3 (4.0-10.5)
[2016-08-03 17:12] LABS: DIFF IND NO
[2016-08-03 17:31] LABS: ALBUMIN SERUM 3.7 g/dL (3.5-5.0); BILIRUBIN, DIRECT 0.1 mg/dL (0.0-0.2); BILIRUBIN,INDIRECT 0.6 mg/dL (0.0-0.9); BILIRUBIN,TOTAL 0.7 mg/dL (0.2-2.0); BUN/CREATININE RATIO 3.43; CALCIUM SERUM 8.9 mg/dL (8.4-10.2); CREATININE SERUM 6.4 mg/dL (0.6-1.4); GLOM FILT RATE Estimated 6.4 mL/min (>60); POTASSIUM 3.4 mmol/L (3.5-5.1); PROTEIN TOTAL SERUM 7.2 g/dL (6.0-8.3)
[2016-08-03 18:38] LABS: POC - CKMB <1.0 ng/mL (0.0-7.9); POC - TROPONIN <0.05 ng/mL (<=0.05)
[~2016-08-03 19:00] MED LIST changes: +AMIODARONE HCL200 MG PO; +CALCIUM ACETAT667 MG PO; +HUMALOG100 UNIT/1 SUBQ; +LEVEMIR FL100 UNIT/1 SUBQ; +METOPROLOL TAR25 MG; +SENSIPAR30 MG PO; +TIROSINT50 MCG PO; +[UNRECOGNIZED DRUG - REMARK]
[2016-08-03 19:32] LABS: POC - CKMB <1.0 ng/mL (0.0-7.9); POC - TROPONIN <0.05 ng/mL (<=0.05)
[2016-08-04 01:42] LABS: CK TOTAL 30 IU/L (26-140)
[2016-08-04 07:03] LABS: BASOPHIL# 0.1 X10e3 (0-0.3); BASOPHIL% 1.3 % (0-2.5); EOSINOPHIL# 0.3 X10e3 (0-0.7); EOSINOPHIL% 6.2 % (0.0-7.0); HEMATOCRIT 31.9 % (35.0-45.0); HEMOGLOBIN 10.3 gm/dL (12.0-16.0); MEAN CELL VOLUME 93.3 FL (83-96); MEAN CORPUSCULAR HGB CONC 32.2 g/dL (30-36); MEAN PLATELET VOLUME 8.1 FL (6.5-11.5); MONOCYTE# 0.5 X10e3 (0-1.0); MONOCYTE% 11.1 % (3.0-12.0); NEUTROPHIL# 2.9 X10e3 (1.5-7.1); NEUTROPHIL% 60.4 % (40-75); PLATELET COUNT 158 X10e3 (140-420); RED BLOOD COUNT 3.42 X10e (3.90-5.30); RED CELL DISTRIBUTION WIDTH 19.4 % (11.0-15.5); WHITE BLOOD COUNT 4.9 X10e3 (4.0-10.5)
[2016-08-04 07:05] LABS: DIFF IND NO
[2016-08-04 07:50] LABS: CK TOTAL 27 IU/L (26-140)
[2016-08-04 08:07] LABS: BUN/CREATININE RATIO 3.57; GLOM FILT RATE Estimated 5.7 mL/min (>60); POTASSIUM 3.5 mmol/L (3.5-5.1)
[2016-08-05 05:35] LABS: HEMATOCRIT 32.3 % (35.0-45.0); HEMOGLOBIN 10.3 gm/dL (12.0-16.0); MEAN CELL VOLUME 92.9 FL (83-96); MEAN CORPUSCULAR HEMOGLOBIN 29.5 PG (28-34); MEAN CORPUSCULAR HGB CONC 31.7 g/dL (30-36); MEAN PLATELET VOLUME 8.3 FL (6.5-11.5); RED BLOOD COUNT 3.48 X10e (3.90-5.30); RED CELL DISTRIBUTION WIDTH 19.3 % (11.0-15.5); WHITE BLOOD COUNT 4.8 X10e3 (4.0-10.5)
[2016-08-05 06:30] LABS: BUN/CREATININE RATIO 2.55; CALCIUM SERUM 8.5 mg/dL (8.4-10.2); GLOM FILT RATE Estimated 10.3 mL/min (>60); POTASSIUM 4.1 mmol/L (3.5-5.1)
[2016-08-05 06:32] LABS: CREATININE SERUM 4.3 mg/dL (0.6-1.4)
[2016-08-06 05:16] LABS: HEMATOCRIT 32.8 % (35.0-45.0); HEMOGLOBIN 10.3 gm/dL (12.0-16.0); MEAN CELL VOLUME 93.2 FL (83-96); MEAN CORPUSCULAR HEMOGLOBIN 29.3 PG (28-34); MEAN CORPUSCULAR HGB CONC 31.4 g/dL (30-36); MEAN PLATELET VOLUME 8.2 FL (6.5-11.5); RED BLOOD COUNT 3.52 X10e (3.90-5.30); RED CELL DISTRIBUTION WIDTH 19.3 % (11.0-15.5); WHITE BLOOD COUNT 4.7 X10e3 (4.0-10.5)
[2016-08-06 06:17] LABS: ALBUMIN SERUM 3.3 g/dL (3.5-5.0); BILIRUBIN,TOTAL 0.6 mg/dL (0.2-2.0); BUN/CREATININE RATIO 4.03; CALCIUM SERUM 8.8 mg/dL (8.4-10.2); CREATININE SERUM 5.7 mg/dL (0.6-1.4); GLOM FILT RATE Estimated 7.4 mL/min (>60); POTASSIUM 4.7 mmol/L (3.5-5.1); PROTEIN TOTAL SERUM 6.3 g/dL (6.0-8.3)
[2016-08-06] MEDS ORDERED: PROTONIX PO (16:26)
[2016-08-10 11:56] LABS: HA AB IGM (HEPPAN) Nonreactive (()); HB CORE AB IGM (HEPPAN) Nonreactive (Nonreactive); HB S AG (HEPPAN) Nonreactive (Nonreactive); HEP C AB (HEPPAN) Nonreactive (Nonreactive); HEP C AB SIGNAL TO CUTOFF 0.04 ratio (<1.00)
== END 2016-08-06 17:03 | disposition home or self-care (01) | DRG 383 ==
LOC: CED 19:00 → CEDOF 21:20 → C5B 23:13
PROVIDERS: Emergency Medicine; Internal Medicine; Internal Medicine Nephrology
PROC: B32TYZZ Computerized Tomography (CT Scan) of Left Pulmonary Artery using Other Contrast (ICD-10-PCS; 2016-08-03)
PROC: B32SYZZ Computerized Tomography (CT Scan) of Right Pulmonary Artery using Other Contrast (ICD-10-PCS; 2016-08-03)
PROC: 5A1D60Z (ICD-10-PCS; 2016-08-04)
PROC: 0DB68ZX Excision of Stomach, Via Natural or Artificial Opening Endoscopic, Diagnostic (ICD-10-PCS; principal; 2016-08-05 13:55)
DX: K25.7 Chronic gastric ulcer without hemorrhage or perforation (principal); N18.6 End stage renal disease; J90 Pleural effusion, not elsewhere classified; I12.0 Hypertensive chronic kidney disease with stage 5 chronic kidney disease or end stage renal disease; E11.22 Type 2 diabetes mellitus with diabetic chronic kidney disease; I31.3 Pericardial effusion (noninflammatory); J98.11 Atelectasis; R07.89 Other chest pain; Z95.0 Presence of cardiac pacemaker; Z99.2 Dependence on renal dialysis; E78.5 Hyperlipidemia, unspecified; E21.3 Hyperparathyroidism, unspecified; E03.9 Hypothyroidism, unspecified; Z85.528 Personal history of other malignant neoplasm of kidney; Z90.49 Acquired absence of other specified parts of digestive tract; Z90.710 Acquired absence of both cervix and uterus; Z79.82 Long term (current) use of aspirin; R13.10 Dysphagia, unspecified; Z79.4 Long term (current) use of insulin; I48.0 Paroxysmal atrial fibrillation
CPT/HCPCS: 36415; 71010; 71275; 80048; 80053; 80074; 80076; 80202; 82550; 82553; 82947; 84484; 85025; 85027; 85730; 87040; 88305; 88312; 93005; 93970; 94760; 99285; C9113; J0360; J0692; J2270; J2405; J3370; Q4081; Q9967

== ENCOUNTER 2016-11-02 15:18 | Emergency (ER) | payer MEDICARE ==
[~2016-11-02] VITALS: Ht 157.5 cm; Wt 79.8 kg
--- NOTE | ~2016-11-02 | EKG ---
PATIENT: JUSTYN ELLISON UNIT #: [id number] Ventricular Rate: 60 BPM Atrial Rate: 60 BPM P-R Interval: 188 ms QRS Duration: 92 ms Q-T Interval: 468 ms QTC Calculation(Bezet): 468 ms P [place]: 11 degrees Calculated R [place]: -15 degrees Calculated T [place]: 50 degrees Diagnosis Line: Suspect unspecified pacemaker failure Diagnosis Line: Normal sinus rhythm Diagnosis Line: Normal ECG Diagnosis Line: When compared with ECG of 03-AUG-2016 17:00, Diagnosis Line: Sinus rhythm has replaced Electronic atrial Diagnosis Line: pacemaker Diagnosis Line: Questionable change in QRS axis Diagnosis Line: T wave inversion no longer evident in Diagnosis Line: Anterolateral leads Diagnosis Line: Confirmed by GREG LAWSON MD ([id number]) on Diagnosis Line: 11/03/2016 2:00:24 PM INTERPRETING MD: LULU MIKE
--- NOTE | ~2016-11-02 | CR72 ---
[facility] A Service of [facility] & [facility] RADIOLOGY TEXT RESULTS PATIENT: JUSTYN ELLISON LOCATION: [facility] : [birth year] UNIT #: [id number] AGE: [address]: Jim Jennings MD SEX: F ORDER DR: [id number] [facility] [address] [place], [place] [address] [id number] E MR#: [id number] Acc #: [id number] NAME: JUSTYN ELLISON : 1955 SEX: F STUDY DATE/TIME: 11/02/2016 16:32 UNIT: [facility] ROOM: STUDY DESCRIPTION: CR Chest Single View Portable Attending Physician: Jim Jennings M.D. Ordering Physician: Jim Jennings M.D. Primary Care Physician: Ayesha Cameron MEDICAL IMAGING REPORT This report is preliminary unless electronic signature is present EXAM Portable chest, 11/02 COMPARISON 08/03/2016 HISTORY Cough, chest pain and congestion for one month. FINDINGS A portable view of the chest was obtained. The heart size is upper limits of normal. The vascularity is normal and the lungs are clear. The dual lead pacemaker is in good position. IMPRESSION No active disease. Dictated by... Keshawn Wolf M.D. THIS IS AN ELECTRONICALLY VERIFIED REPORT Keshawn Wolf M.D. at 11/03/2016 2:52 PM Ally TD: 11/03/2016 07:53 JOB #: [id number] MEDICAL IMAGING REPORT Page 1 of 1 COPY
--- NOTE | ~2016-11-02 | EKG ---
PATIENT: JUSTYN ELLISON UNIT #: [id number] Ventricular Rate: 61 BPM Atrial Rate: 61 BPM P-R Interval: 192 ms QRS Duration: 92 ms Q-T Interval: 492 ms QTC Calculation(Bezet): 495 ms P [place]: 40 degrees Calculated R [place]: -38 degrees Calculated T [place]: 40 degrees Diagnosis Line: Suspect unspecified pacemaker failure Diagnosis Line: Normal sinus rhythm Diagnosis Line: Possible Left atrial enlargement Diagnosis Line: Left axis deviation Diagnosis Line: Abnormal ECG Diagnosis Line: When compared with ECG of 02-NOV-2016 15:39, Diagnosis Line: (unconfirmed) Diagnosis Line: No significant change was found Diagnosis Line: Confirmed by GREG LAWSON MD ([id number]) on Diagnosis Line: 11/03/2016 2:00:38 PM INTERPRETING MD: LULU MIKE
[2016-11-02 16:00] LABS: BASOPHIL# 0.1 X10e3 (0-0.3); EOSINOPHIL# 0.2 X10e3 (0-0.7); EOSINOPHIL% 3.3 % (0.0-7.0); HEMATOCRIT 35.5 % (35.0-45.0); HEMOGLOBIN 11.7 gm/dL (12.0-16.0); LYMPHOCYTE# 1.6 X10e3 (1.0-3.5); LYMPHOCYTE% 28.7 % (17.0-45.0); MEAN CELL VOLUME 93.8 FL (83-96); MONOCYTE# 0.6 X10e3 (0-1.0); MONOCYTE% 10.2 % (3.0-12.0); NEUTROPHIL# 3.1 X10e3 (1.5-7.1); NEUTROPHIL% 56.8 % (40-75); PLATELET COUNT 200 X10e3 (140-420); RED BLOOD COUNT 3.78 X10e (3.90-5.30); RED CELL DISTRIBUTION WIDTH 15.5 % (11.0-15.5); WHITE BLOOD COUNT 5.5 X10e3 (4.0-10.5)
[2016-11-02 16:02] LABS: DIFF IND NO
[2016-11-02 16:10] LABS: INR 1.1; PARTIAL THROMBOPLASTIN TIME 27.3 SECONDS (23.5-31.3); PROTHROMBIN TIME (PATIENT) 11.5 SECONDS (10.0-11.7)
[2016-11-02 16:11] LABS: POC - CKMB <1.0 ng/mL (0.0-7.9); POC - TROPONIN <0.05 ng/mL (<=0.05)
[2016-11-02 16:29] LABS: ALBUMIN SERUM 4.2 g/dL (3.5-5.0); BILIRUBIN, DIRECT 0.1 mg/dL (0.0-0.2); BILIRUBIN,INDIRECT 0.5 mg/dL (0.0-0.9); BILIRUBIN,TOTAL 0.6 mg/dL (0.2-2.0); BUN/CREATININE RATIO 6.66; CALCIUM SERUM 9.5 mg/dL (8.4-10.2); CREATININE SERUM 6.9 mg/dL (0.6-1.4); GLOM FILT RATE Estimated 5.8 mL/min (>60); POTASSIUM 4.9 mmol/L (3.5-5.1); PROTEIN TOTAL SERUM 7.6 g/dL (6.0-8.3)
[2016-11-02 17:45] LABS: POC - CKMB <1.0 ng/mL (0.0-7.9); POC - TROPONIN <0.05 ng/mL (<=0.05)
== END 2016-11-02 19:08 | disposition home or self-care (01) ==
LOC: CED 15:18
PROVIDERS: Emergency Medicine
DX: R07.89 Other chest pain (principal); T82.199A Other mechanical complication of unspecified cardiac device, initial encounter; R11.0 Nausea; I13.11 Hypertensive heart and chronic kidney disease without heart failure, with stage 5 chronic kidney disease, or end stage renal disease; N18.6 End stage renal disease; I51.9 Heart disease, unspecified; E11.9 Type 2 diabetes mellitus without complications; Z90.49 Acquired absence of other specified parts of digestive tract; Z90.710 Acquired absence of both cervix and uterus; Z95.0 Presence of cardiac pacemaker; Z79.01 Long term (current) use of anticoagulants; Z79.899 Other long term (current) drug therapy
CPT/HCPCS: 36415; 71010; 80048; 80076; 82553; 84484; 85025; 85610; 85730; 93005; 99285

== ENCOUNTER 2016-12-03 19:45 | Emergency (ER) | payer MEDICARE ==
[~2016-12-03] VITALS: Ht 157.5 cm; Wt 80.7 kg
--- NOTE | ~2016-12-03 | CT4 ---
[facility] A Service of [facility] RADIOLOGY TEXT RESULTS PATIENT: JUSTYN ELLISON LOCATION: [facility] : 53 UNIT #: [id number] AGE: [address]: Max White MD SEX: F ORDER DR: [id number] [facility] [address] [place], [place] [address] [id number] MR#: [id number] Acc #: [id number] NAME: JUSTYN ELLISON. : 1955 SEX: F STUDY DATE/TIME: 12/03/2016 23:12 UNIT: [facility] ROOM: STUDY DESCRIPTION: CT Abd and Pelv Wo Cont Attending Physician: Max White M.D. Ordering Physician: Max White M.D. Primary Care Physician: Ayesha Cameron MEDICAL IMAGING REPORT This report is preliminary unless electronic signature is present EXAM CT abdomen and pelvis without contrast HISTORY Left upper quadrant abdomen pain and nausea for [address] exam was performed with one or more of the following radiation dose reduction techniques: automatic exposure control, adjustment of mA and/or kV according to patient size, and iterative reconstruction. FINDINGS CT abdomen and pelvis was performed with oral contrast and without IV contrast. CT abdomen: The liver, spleen, pancreas, and adrenal glands are unremarkable. Left nephrectomy. Atrophy of the right kidney. Mild dilatation of small bowel in the left abdomen, probably mild ileus. No ascites. Normal caliber abdominal aorta. CT pelvis: Minimal perisigmoid stranding has almost completely resolved compared to CT 07/14/2016. This could be residual postinflammatory change or minimal diverticulitis. There is fairly extensive underlying sigmoid diverticulosis. No free fluid. Hysterectomy. Urinary bladder is normal. IMPRESSION 1. Minimal irving-sigmoid stranding has almost completely resolved compared to CT 07/14/2016. This could be postinflammatory change versus minimal residual sigmoid diverticulitis. Moderately extensive underlying sigmoid diverticulosis. No free fluid or abscess. 2. Mild dilatation of small bowel in the left abdomen could be secondary to mild ileus. No definite transition point is identified. [facility] A Service of [facility] RADIOLOGY TEXT RESULTS PATIENT: JUSTYN ELLISON [id number] 53 UNIT #: [id number] AGE: [address]: Max White MD SEX: F ORDER DR: 3. Left nephrectomy. Atrophy of the right kidney. Hysterectomy and cholecystectomy. Dictated by... Bhargav Jean M.D. THIS IS AN ELECTRONICALLY VERIFIED REPORT Bhargav Jean M.D. at 12/04/2016 6:14 AM KHARI/ana TD: 12/04/2016 05:58 JOB #: [id number] MEDICAL IMAGING REPORT Page 1 of 1 COPY
[2016-12-03 20:42] LABS: BASOPHIL# 0.1 X10e3 (0-0.3); BASOPHIL% 1.2 % (0-2.5); EOSINOPHIL# 0.1 X10e3 (0-0.7); EOSINOPHIL% 1.4 % (0.0-7.0); HEMATOCRIT 33.1 % (35.0-45.0); HEMOGLOBIN 11.5 gm/dL (12.0-16.0); MEAN CELL VOLUME 95.8 FL (83-96); MEAN CORPUSCULAR HEMOGLOBIN 33.3 PG (28-34); MEAN CORPUSCULAR HGB CONC 34.8 g/dL (30-36); MEAN PLATELET VOLUME 7.6 FL (6.5-11.5); MONOCYTE# 0.4 X10e3 (0-1.0); MONOCYTE% 9.1 % (3.0-12.0); NEUTROPHIL# 3.3 X10e3 (1.5-7.1); NEUTROPHIL% 68.3 % (40-75); PLATELET COUNT 224 X10e3 (140-420); RED BLOOD COUNT 3.46 X10e (3.90-5.30); RED CELL DISTRIBUTION WIDTH 14.7 % (11.0-15.5); WHITE BLOOD COUNT 4.9 X10e3 (4.0-10.5)
[2016-12-03 20:46] LABS: DIFF IND NO
[2016-12-03 21:08] LABS: ALBUMIN SERUM 4.3 g/dL (3.5-5.0); BILIRUBIN, DIRECT 0.1 mg/dL (0.0-0.2); BILIRUBIN,INDIRECT 0.6 mg/dL (0.0-0.9); BILIRUBIN,TOTAL 0.7 mg/dL (0.2-2.0); BUN/CREATININE RATIO 5.47; CALCIUM SERUM 9.6 mg/dL (8.4-10.2); CREATININE SERUM 4.2 mg/dL (0.6-1.4); GLOM FILT RATE Estimated 10.6 mL/min (>60); POTASSIUM 4.4 mmol/L (3.5-5.1); PROTEIN TOTAL SERUM 7.9 g/dL (6.0-8.3)
[2016-12-03 21:49] LABS: INR 2.1; PROTHROMBIN TIME (PATIENT) 23.4 SECONDS (10.0-11.7)
== END 2016-12-04 01:40 | disposition home or self-care (01) ==
LOC: CED 19:45
PROVIDERS: Emergency Medicine
DX: R10.12 Left upper quadrant pain (principal); R11.2 Nausea with vomiting, unspecified; I48.91 Unspecified atrial fibrillation; E11.22 Type 2 diabetes mellitus with diabetic chronic kidney disease; I12.0 Hypertensive chronic kidney disease with stage 5 chronic kidney disease or end stage renal disease; N18.6 End stage renal disease; Z99.2 Dependence on renal dialysis; K57.92 Diverticulitis of intestine, part unspecified, without perforation or abscess without bleeding; Z79.899 Other long term (current) drug therapy; Z79.82 Long term (current) use of aspirin; Z79.01 Long term (current) use of anticoagulants
CPT/HCPCS: 36415; 74176; 80048; 80076; 83690; 85025; 85610; 96372; 96374; 96375; 99284; J0500; J2270; J2550

== ENCOUNTER → 2016-12-23 | Outpatient (CLI) | payer MEDICARE ==
--- NOTE | ~2016-12-23 | MY26 ---
[facility] A Service [facility] RADIOLOGY TEXT RESULTS PATIENT: JUSTYN ELLISON LOCATION: [facility] : 53 UNIT #: [id number] AGE: [address]: HERMES NARANJO SEX: F ORDER DR: [id number] [facility] [address] [place], [place] [address] [id number] O MR#: [id number] Acc #: [id number] NAME: JUSTYN ELLISON. : 1955 SEX: F STUDY DATE/TIME: 12/23/2016 11:14 UNIT: [facility] ROOM: STUDY DESCRIPTION: [facility] DIAGNOSTIC W/ CAD BILAT Attending Physician: Hermes Naranjo Referring Physician: Hermes Naranjo Ordering Physician: Physician Non-Staff Primary Care Physician: Hermes Naranjo MEDICAL IMAGING REPORT This report is preliminary unless electronic signature is present EXAMINATION Bilateral digital diagnostic mammogram with CAD. DATE 12/23/2016 HISTORY Chronic blistering of the left nipple since 2002. No complaints of palpable abnormality today. On dialysis. Diabetes. HISTORY Benign left breast biopsy in 2004. COMPARISON Bilateral screening mammogram, 09/10/2014. Left breast diagnostic mammogram, 12/17/2014. FINDINGS CC and MLO views were obtained of each breast and additional true ML views obtained of left breast. The study was performed utilizing digital technique and reviewed with an FDA-approved CAD device. Spot compression imaging was also performed of the anterior left breast in the CC plane. Scattered fibroglandular densities are present bilaterally. No new or suspicious nodules identified. Extensive calcific atherosclerotic changes are seen throughout the breasts, which has significantly increased when compared to the 09/10/2014 examination, potentially related to patient's kidney disease (on dialysis) and diabetes. However, no suspicious clustered microcalcification is seen. No nonsurgical architectural distortion features are evident. Presumed of pacemaker generator device over the right pectoral muscle. No definite asymmetric skin thickening is seen within the right [facility] A Service [facility] RADIOLOGY TEXT RESULTS PATIENT: JUSTYN ELLISON [id number] 53 UNIT #: [id number] AGE: [address]: HERMES NARANJO SEX: F ORDER DR: periareolar region. No nipple retraction is seen. IMPRESSION 1. BIRADS category 2. Benign findings in each breast. No mammographic features suspicious for malignancy. There is no mammographic explanation for the patient's left nipple blistering. Any further management of the skin changes should be based upon clinical assessment. 2. Significant increase in extensive calcific atherosclerotic features in each breast since the 2015 examination may be related to patient's known history of kidney disease and diabetes. 3. Routine annual screening mammogram is recommended in 1 year. 4. Findings were discussed with the patient today in the radiology department via an graduate school dean. Patients over the age of 40 are entered into a reminder system with target due date for the next mammogram. A result letter will also be sent to the patient. BIRADS: 2 Benign finding. Dictated by... Mary Cardoza M.D. THIS IS AN ELECTRONICALLY VERIFIED REPORT Mary Cardoza M.D. at 12/24/2016 9:40 AM MELINA/benigno TD: 12/23/2016 13:00 JOB #: [id number] MEDICAL IMAGING REPORT Page 1 of 1 COPY
== END | disposition home or self-care (01) ==
LOC: CMAM 10:46
DX: N64.52 Nipple discharge (principal); R26.0 Ataxic gait; I10 Essential (primary) hypertension; E11.9 Type 2 diabetes mellitus without complications; F02.81 Dementia in other diseases classified elsewhere, unspecified severity, with behavioral disturbance; I70.8 Atherosclerosis of other arteries; Z96.0 Presence of urogenital implants; Z99.2 Dependence on renal dialysis
CPT/HCPCS: G0204